=== PATIENT | male | born 1955 | race American Indian/Alaskan Native ===

== ENCOUNTER 2016-11-07 12:51 | Emergency (ER) | payer SELFPAY ==
[2016-11-07 13:30] LABS: Basophils % (Auto) 1.4 % (0.0-1.8); Eosinophils % (Auto) 2.6 % (0.0-4.3); Hematocrit 42.4 % (35.5-45.6); Hemoglobin 14.3 gm/dl (11.8-15.2); Mean Corpuscular HGB Conc 34 % (32-34); Mean Corpuscular Hemoglobin 28 pg (28-32); Mean Corpuscular Volume 84 fl (84-94); Platelet Count 266 K/mm3 (140-440); Red Blood Count 5.02 M/mm3 (3.65-5.03); Red Cell Distribution Width 13.5 % (13.2-15.2); White Blood Count 6.5 K/mm3 (4.5-11.0)
[2016-11-07 13:36] LABS: Anion Gap 20 mmol/L; BUN/Creatinine Ratio 8.88; Blood Urea Nitrogen 8 mg/dL (9-20); Calcium 9.3 mg/dL (8.4-10.2); Carbon Dioxide 25 mmol/L (22-30); Chloride 99.4 mmol/L (98-107); Glucose 198 mg/dL (75-100); Potassium 3.9 mmol/L (3.6-5.0); Sodium 140 mmol/L (137-145)
[2016-11-07] MEDS ORDERED: NACL 0.9% 1000 ML 1,000 ML IV ONE (13:49)
[2016-11-07] MEDS ORDERED: ZOFRAN IV ONE (13:49)
--- NOTE | 2016-11-07 13:56 | Emergency Department Report ---
ED Abdominal Pain HPI - General Chief Complaint: Nausea/Vomiting/Diarrhea Stated Complaint: VOMITTING/STOMACH CRAMPS/NOT EATING Time Seen by Provider: 11/07/16 13:49 Source: patient Mode of arrival: Ambulatory Limitations: No Limitations - History of Present Illness Initial Comments: Patient is a 61-year-old male with history of diabetes presenting to the ER nausea and vomiting. Patient reports for the last week he's had lower abdominal cramping intermittently with associated vomiting. Patient proceeded to vomited twice this week. Vomiting is unrelated to food intake. Otherwise he has been at his normal baseline health. No fevers, chills, headaches, dizziness, chest pain, shortness of breath, falls, syncope, trauma, or sick contacts - Related Data Home Medications Medication Instructions Recorded Confirmed Last Taken Metformin HCl [Glucophage] 850 mg PO BID 11/07/16 11/07/16 11/05/16 glipiZIDE [Glucotrol] 5 mg PO TID 11/07/16 11/07/16 11/05/16 Previous Rx's Medication Instructions Recorded Last Taken Type Ondansetron [Zofran ODT TAB] 8 mg PO Q8HR PRN #12 tab.rapdis 11/07/16 Unknown Rx Allergies Allergy/AdvReac Type Severity Reaction Status Date / Time No Known Allergies Allergy Unverified 11/07/16 12:54 ED Review of Systems ROS: Stated complaint: VOMITTING/STOMACH CRAMPS/NOT EATING Other details as noted in HPI Comment: All other systems reviewed and negative ED Past Medical Hx - Past Medical History Previous Medical History?: Yes Hx Diabetes: Yes Additional medical history: glaucoma, fungus in nails, insomnia, vertigo, diabetic neuropathy - Surgical History Past Surgical History?: No - Social History Smoking Status: Never Smoker Substance Use Type: Prescribed - Medications Home Medications: Home Medications Medication Instructions Recorded Confirmed Last Taken Type Metformin HCl [Glucophage] 850 mg PO BID 11/07/16 11/07/16 11/05/16 History Ondansetron [Zofran ODT TAB] 8 mg PO Q8HR PRN #12 tab.rapdis 11/07/16 Unknown Rx glipiZIDE [Glucotrol] 5 mg PO TID 11/07/16 11/07/16 11/05/16 History ED Physical Exam - General Limitations: No Limitations General appearance: alert, in no apparent distress - Head Head exam: Present: atraumatic, normocephalic - Eye Eye exam: Present: normal appearance, PERRL, EOMI Pupils: Present: normal accommodation - ENT ENT exam: Present: mucous membranes moist - Neck Neck exam: Present: normal inspection - Respiratory Respiratory exam: Present: normal lung sounds bilaterally. Absent: respiratory distress - Cardiovascular Cardiovascular Exam: Present: regular rate, normal rhythm. Absent: systolic murmur, diastolic murmur, rubs, gallop - GI/Abdominal GI/Abdominal exam: Present: soft, normal bowel sounds. Absent: distended, tenderness, guarding, rebound, rigid - Rectal Rectal exam: Present: deferred - exam: Present: normal inspection - Extremities Exam Extremities exam: Present: normal inspection - Back Exam Back exam: Present: normal inspection - Neurological Exam Neurological exam: Present: alert, oriented X3 - Psychiatric Psychiatric exam: Present: normal affect, normal mood - Skin Skin exam: Present: warm, dry, intact, normal color. Absent: rash ED Course Vital Signs 11/07/16 12:56 Temperature 98.3 F Pulse Rate 65 Respiratory 20 Rate Blood Pressure 142/75 O2 Sat by Pulse 100 Oximetry ED Medical Decision Making - Lab Data Result diagrams: 11/07/16 13:10 11/07/16 13:10 Critical care attestation.: If time is entered above; I have spent that time in minutes in the direct care of this critically ill patient, excluding procedure time. ED Disposition Clinical Impression: Abdominal pain, Nausea & vomiting Disposition: DC-01 TO HOME OR SELFCARE Is pt being admited?: No Condition: Stable Instructions: Abdominal Pain (ED), Acute Nausea and Vomiting (ED) Prescriptions: Ondansetron [Zofran ODT TAB] 8 mg PO Q8HR PRN #12 tab.rapdis PRN Reason: Nausea Referrals: PRIMARY CARE,MD [Primary Care Provider] - 3-5 Days
[2016-11-07 14:01] LABS: Bacteria,Urine 1+ /HPF (Negative); Bilirubin,Urine NEG (Negative); Blood,Urine NEG (Negative); Ketones,Urine NEG (Negative); Leukocyte Esterase,Urine NEG (Negative); Mucus,Urine 3+ /HPF; Nitrite,Urine NEG (Negative); Protein,Urine <15 mg/dL mg/dL (Negative); Urobilinogen,Urine < 2.0 mg/dL (<2.0)
[2016-11-07 14:29] LABS: Alanine Aminotransferase 19 units/L (7-56); Alkaline Phosphatase 75 units/L (35-129); Lipase 24 units/L (13-60)
[2016-11-07 14:31] LABS: Bilirubin,Direct < 0.2 mg/dL (0-0.2)
[2016-11-07 16:21] VITALS: BP 132/78
== END 2016-11-07 16:20 | disposition home or self-care (01) ==
LOC: ED 12:51
DX: R10.9 Unspecified abdominal pain (principal); R11.2 Nausea with vomiting, unspecified; E11.9 Type 2 diabetes mellitus without complications
CPT/HCPCS: 36415; 80048; 80074; 81001; 82962; 83690; 85025; 96361; 96374; 99283; J2405; J7030

== ENCOUNTER 2018-06-30 09:18 | Inpatient (IN) | payer MEDICARE ==
[2018-06-30] MEDS ORDERED: NACL 0.9% 1000 ML 1,000 ML IV ONE (09:37)
[2018-06-30] MEDS ORDERED: ZOFRAN IV ONE (09:37)
--- NOTE | 2018-06-30 09:40 | Emergency Department Report ---
ED Abdominal Pain HPI - General Chief Complaint: Nausea/Vomiting/Diarrhea Stated Complaint: DEHYDRATION/CANNOT EAT OR DRINK Time Seen by Provider: 06/30/18 09:34 Source: patient Mode of arrival: Ambulatory Limitations: No Limitations - History of Present Illness Initial Comments: Patient is 62 years old male with a history of diabetes. Patient presented to the ER complaining of diffuse abdominal pain, cramping in nature associated with nausea and vomiting. Patient stated that he is and able to keep anything down for the last 3 days. Last bowel movement was Saturday. Patient stated that he passing gas normally. Patient denied any fever or chills. MD Complaint: abdominal pain -: days(s) Location: diffuse Radiation: none Migration to: no migration Severity scale (0 -10): 0 Quality: cramping Consistency: intermittent - Related Data Home Medications Medication Instructions Recorded Confirmed Last Taken Metformin HCl [Glucophage] 850 mg PO BID 11/07/16 11/07/16 11/05/16 glipiZIDE [Glucotrol] 5 mg PO TID 11/07/16 11/07/16 11/05/16 Previous Rx's Medication Instructions Recorded Last Taken Type Ondansetron [Zofran ODT TAB] 8 mg PO Q8HR PRN #12 tab.rapdis 11/07/16 Unknown Rx Allergies Allergy/AdvReac Type Severity Reaction Status Date / Time No Known Allergies Allergy Unverified 11/07/16 12:54 ED Review of Systems ROS: Stated complaint: DEHYDRATION/CANNOT EAT OR DRINK Other details as noted in HPI Comment: All other systems reviewed and negative Constitutional: denies: chills, fever Cardiovascular: denies: chest pain, palpitations Gastrointestinal: abdominal pain, nausea, vomiting, constipation. denies: diarrhea, hematemesis, melena, hematochezia Musculoskeletal: denies: back pain ED Past Medical Hx - Past Medical History Previous Medical History?: Yes Hx Diabetes: Yes Additional medical history: glaucoma, fungus in nails, insomnia, vertigo, diabetic neuropathy - Surgical History Past Surgical History?: Yes Additional Surgical History: cataracts - Social History Smoking Status: Never Smoker Substance Use Type: None - Medications Home Medications: Home Medications Medication Instructions Recorded Confirmed Last Taken Type Metformin HCl [Glucophage] 850 mg PO BID 11/07/16 11/07/16 11/05/16 History Ondansetron [Zofran ODT TAB] 8 mg PO Q8HR PRN #12 tab.rapdis 11/07/16 Unknown Rx glipiZIDE [Glucotrol] 5 mg PO TID 11/07/16 11/07/16 11/05/16 History ED Physical Exam - General Limitations: No Limitations General appearance: alert, other (actively vomiting) - Head Head exam: Present: atraumatic, normocephalic, normal inspection - Eye Eye exam: Present: normal appearance - ENT ENT exam: Present: mucous membranes dry - Neck Neck exam: Present: normal inspection, full ROM. Absent: tenderness, meningismus, lymphadenopathy, thyromegaly - Respiratory Respiratory exam: Present: normal lung sounds bilaterally. Absent: respiratory distress, wheezes, rales, rhonchi, chest wall tenderness, accessory muscle use, decreased breath sounds, prolonged expiratory - Cardiovascular Cardiovascular Exam: Present: tachycardia - GI/Abdominal GI/Abdominal exam: Present: soft, tenderness, normal bowel sounds. Absent: distended, guarding, rebound, rigid, organomegaly, mass, bruit, pulsatile mass - Extremities Exam Extremities exam: Present: normal inspection, full ROM, normal capillary refill - Back Exam Back exam: Present: normal inspection, full ROM. Absent: tenderness, CVA tenderness (R), CVA tenderness (L), muscle spasm, paraspinal tenderness, vertebral tenderness - Neurological Exam Neurological exam: Present: alert, oriented X3, CN II-XII intact, normal gait, reflexes normal - Psychiatric Psychiatric exam: Present: normal mood - Skin Skin exam: Present: warm, intact, normal color ED Course Vital Signs 06/30/18 09:20 Temperature 98.8 F Pulse Rate 109 H Respiratory 18 Rate Blood Pressure 129/66 O2 Sat by Pulse 100 Oximetry ED Medical Decision Making - Lab Data Result diagrams: 06/30/18 09:42 06/30/18 09:42 - Radiology Data Radiology results: report reviewed Referring Physician: KAREN PAUL Patient Name: EVA CARTER Date of : 1955 Sex: Male Report Date: 2018-06-30 Report Status: Finalized Findings [facility] [address] [place] [address] Cat Scan Report Signed Patient: EVA CARTER MR#: [id number] : 1955 Acct:[id number] Age/Sex: 62 / M ADM Date: 06/30/18 Loc: ED Attending Dr: Ordering Physician: KAREN PAUL Date of Service: 06/30/18 Procedure(s): CT abdomen pelvis wo con Accession Number(s): [id number] cc: KAREN PAUL CT ABDOMEN PELVIS WITHOUT CONTRAST: HISTORY: abdominal pain. COMPARISON: none. TECHNIQUE: Helical CT in 1.25mm intervals without IV contrast. Sagittal and coronal reconstructions. FINDINGS: Lung bases: Normal. Liver: Normal. Biliary system: Normal. Pancreas: Normal. Spleen: Normal. Kidneys/ureters/bladder: Normal. Adrenal glands: Normal. Aorta: Normal. Intestines: Unremarkable given no oral contrast was administered. Appendix: Not confidently identified. Pelvic viscera: Normal. Ascites: None. Adenopathy: There are a few mildly enlarged right iliac lymph nodes measuring up to 2 cm and the right common and external iliac chains. Musculoskeletal: Intact. A small left inguinal hernia containing fat is identified. IMPRESSION: No acute inflammatory process is identified. Borderline to mildly enlarged right iliac lymph nodes of uncertain clinical significance. These may be reactive in nature. A single appendectomy. Small left inguinal hernia containing fat. Transcribed By: TTR Dictated By: PAIGE COPELAND JR, MD Electronically Authenticated By: PAIGE COPELAND JR, MD Signed Date/Time: 06/30/18 1200 DD/ 1156 TD/TT: 06/30/18 1200 - Medical Decision Making Patient is 62 years old male with a history of diabetes. Patient presented to the ER complaining of diffuse abdominal pain, cramping in nature associated with nausea and vomiting. Patient stated that he is and able to keep anything down for the last 3 days. Last bowel movement was Saturday. Patient stated that he passing gas normally. Patient denied any fever or chills. CT abdomen and pelvis is negative for acute finding specifically no bowel obstruction. Patient received normal saline, Zofran and morphine. Patient also received Zosyn. I discussed the patient to Dr. [place] who advised to bridge patient to [facility]. - Differential Diagnosis bowel obstruction, acute pancreatitis, colitis Critical care attestation.: If time is entered above; I have spent that time in minutes in the direct care of this critically ill patient, excluding procedure time. ED Disposition Clinical Impression: Abdominal pain, Leukocytosis, Intractable nausea and vomiting Disposition: DC-09 OP ADMIT IP TO THIS HOSP Is pt being admited?: Yes Condition: Stable
[2018-06-30 09:58] LABS: Hematocrit 27.9 % (35.5-45.6); Hemoglobin 9.3 gm/dl (11.8-15.2); Mean Corpuscular HGB Conc 33 % (32-34); Mean Corpuscular Volume 83 fl (84-94); Platelet Count 364 K/mm3 (140-440); Red Blood Count 3.38 M/mm3 (3.65-5.03); Red Cell Distribution Width 15.1 % (13.2-15.2)
[2018-06-30 10:12] LABS: Alanine Aminotransferase 33 units/L (7-56); Albumin 2.7 g/dL (3.9-5); BUN/Creatinine Ratio 18; Bilirubin,Direct 0.6 mg/dL (0-0.2); Blood Urea Nitrogen 20 mg/dL (9-20); Calcium 8.7 mg/dL (8.4-10.2); Hemolysis Index 13
[2018-06-30] MEDS ORDERED: HumuLIN R IV ONE (10:23)
[2018-06-30 10:33] LABS: Basophils % (Manual) 0 % (0.0-1.8); Eosinophils % (Manual) 0 % (0.0-4.3); Total Cells Counted 100
[2018-06-30 10:35] LABS: Anisocytosis 1+; Platelet Estimate Consistent w Auto; Poikilocytosis 1+; Target Cells 1+
[2018-06-30] MEDS ORDERED: ZOSYN/NS 3.375GM/50ML 3.375 GM/50 ML BAG IV ONE (11:00)
--- NOTE | 2018-06-30 12:03 | Cat Scan Report ---
CT ABDOMEN PELVIS WITHOUT CONTRAST: HISTORY: abdominal pain. COMPARISON: none. TECHNIQUE: Helical CT in 1.25mm intervals without IV contrast. Sagittal and coronal reconstructions. FINDINGS: Lung bases: Normal. Liver: Normal. Biliary system: Normal. Pancreas: Normal. Spleen: Normal. Kidneys/ureters/bladder: Normal. Adrenal glands: Normal. Aorta: Normal. Intestines: Unremarkable given no oral contrast was administered. Appendix: Not confidently identified. Pelvic viscera: Normal. Ascites: None. Adenopathy: There are a few mildly enlarged right iliac lymph nodes measuring up to 2 cm and the right common and external iliac chains. Musculoskeletal: Intact. A small left inguinal hernia containing fat is identified. IMPRESSION: No acute inflammatory process is identified. Borderline to mildly enlarged right iliac lymph nodes of uncertain clinical significance. These may be reactive in nature. A single appendectomy. Small left inguinal hernia containing fat.
[2018-06-30 12:43] LABS: Bilirubin,Urine NEG (Negative); Blood,Urine NEG (Negative); Color,Urine Amber (Yellow); Mucus,Urine 2+ /HPF
--- NOTE | 2018-06-30 16:08 | History and Physical Report ---
History of Present Illness Date of examination: 06/30/18 Date of admission: 06/30/18 12:23 Chief complaint: Vomiting for 2 days History of present illness: 62 years old male with a history of diabetes presented to the ER complaining of diffuse abdominal pain, cramping in nature associated with nausea and vomiting. Poor historian.Unable to tell me how many times he has vomited. Patient stated that he is not able to keep anything down for the last 3 days. Also right foot ulcer on great toe. Past Medical History Previous Medical History?: Yes Hx Diabetes: Yes Glaucoma, Fungus in nails, iabetic neuropathy Foot ulcer Surgical History Past Surgical History?: Yes Additional Surgical History: cataracts Social History Smoking Status: Never Smoker Substance Use Type: None Medications Home Medications: Home Medications Medication Instructions Recorded Confirmed Last Taken Type Metformin HCl [Glucophage] 850 mg PO BID 11/07/16 11/07/16 11/05/16 History Ondansetron [Zofran ODT TAB] 8 mg PO Q8HR PRN #12 tab.rapdis 11/07/16 Unknown Rx glipiZIDE [Glucotrol] 5 mg PO TID 11/07/16 11/07/16 11/05/16 History Review of Systems ROS: Stated complaint: DEHYDRATION/CANNOT EAT OR DRINK Other details as noted in HPI Comment: All other systems reviewed and negative Constitutional: denies: chills, fever Cardiovascular: denies: chest pain, palpitations Gastrointestinal: abdominal pain, nausea, vomiting, constipation. denies: diarrhea, hematemesis, melena, hematochezia Musculoskeletal: denies: back pain Medications and Allergies Allergies Allergy/AdvReac Type Severity Reaction Status Date / Time No Known Allergies Allergy Unverified 11/07/16 12:54 Home Medications Medication Instructions Recorded Confirmed Last Taken Type Metformin HCl [Glucophage] 850 mg PO BID 11/07/16 06/30/18 06/29/18 History glipiZIDE [Glucotrol] 5 mg PO BID 11/07/16 06/30/18 06/29/18 History Exam - Constitutional Vitals: Temp Pulse Resp BP Pulse Ox 100.4 F H 98 H 16 123/62 99 06/30/18 14:44 06/30/18 14:44 06/30/18 14:45 06/30/18 14:44 06/30/18 14:45 General appearance: Present: no acute distress, well-nourished - EENT Eyes: Present: PERRL ENT: hearing intact, clear oral mucosa - Neck Neck: Present: supple, normal ROM - Respiratory Respiratory effort: normal Respiratory: bilateral: CTA - Cardiovascular Heart rate: 78 Rhythm: regular Heart Sounds: Present: S1 & S2. Absent: rub, click - Extremities Extremities: No edema, abnormal (Rt foot ulcer --2cm x 2cm) Extremity abnormal: edema (Both Lower extremities), pulses diminished, other (Stasis dermtitis both legs) Peripheral Pulses: within normal limits - Abdominal General gastrointestinal: Present: soft, non-tender, non-distended, normal bowel sounds Male genitourinary: Present: normal - Integumentary Integumentary: Present: clear, warm, dry - Musculoskeletal Musculoskeletal: gait normal, strength equal bilaterally - Psychiatric Psychiatric: appropriate mood/affect, intact judgment & insight - Neurologic Neurologic: CNII-XII intact, moves all extremities Results - Labs CBC & Chem 7: 06/30/18 09:42 06/30/18 09:42 Labs: Laboratory Last Values WBC 23.5 K/mm3 (4.5-11.0) H 06/30/18 09:42 RBC 3.38 M/mm3 (3.65-5.03) L 06/30/18 09:42 Hgb 9.3 gm/dl (11.8-15.2) L 06/30/18 09:42 Hct 27.9 % (35.5-45.6) L 06/30/18 09:42 MCV 83 fl (84-94) L 06/30/18 09:42 MCH 28 pg (28-32) 06/30/18 09:42 MCHC 33 % (32-34) 06/30/18 09:42 RDW 15.1 % (13.2-15.2) 06/30/18 09:42 Plt Count 364 K/mm3 (140-440) 06/30/18 09:42 Lymph % (Auto) Hr Intern 06/30/18 09:42 Mcdonough % (Auto) Hr Intern 06/30/18 09:42 Eos % (Auto) Hr Intern 06/30/18 09:42 Baso % (Auto) Hr Intern 06/30/18 09:42 Lymph # Hr Intern 02/18/19 09:42 Mcdonough # Hr Intern 06/30/18 09:42 Eos # Hr Intern 06/30/18 09:42 Baso # Hr Intern 06/30/18 09:42 Add Manual Diff Complete 06/30/18 09:42 Total Counted 100 06/30/18 09:42 Seg Neutrophils % Hr Intern 1819 09:42 Seg Neuts % (Manual) 94.0 % (40.0-70.0) H 06/30/18 09:42 Band Neutrophils % 0 % 06/30/18 09:42 Lymphocytes % (Manual) 1.0 % (13.4-35.0) L 06/30/18 09:42 Reactive Lymphs % (Man) 0 % 06/30/18 09:42 Monocytes % (Manual) 5.0 % (0.0-7.3) 06/30/18 09:42 Eosinophils % (Manual) 0 % (0.0-4.3) 06/30/18 09:42 Basophils % (Manual) 0 % (0.0-1.8) 06/30/18 09:42 Metamyelocytes % 0 % 06/30/18 09:42 Myelocytes % 0 % 06/30/18 09:42 Promyelocytes % 0 % 06/30/18 09:42 Blast Cells % 0 % 06/30/18 09:42 Nucleated RBC % Not Reportable 06/30/18 09:42 Seg Neutrophils # Hr Intern 06/30/18 09:42 Seg Neutrophils # Man 22.1 K/mm3 (1.8-7.7) H 18 09:42 Band Neutrophils # 0.0 K/mm3 06/30/18 09:42 Lymphocytes # (Manual) 0.2 K/mm3 (1.2-5.4) L 18 09:42 Abs React Lymphs (Man) 0.0 K/mm3 06/30/18 09:42 Monocytes # (Manual) 1.2 K/mm3 (0.0-0.8) H 06/30/18 09:42 Eosinophils # (Manual) 0.0 K/mm3 (0.0-0.4) 18 09:42 Basophils # (Manual) 0.0 K/mm3 (0.0-0.1) 06/30/18 09:42 Metamyelocytes # 0.0 K/mm3 06/30/18 09:42 Myelocytes # 0.0 K/mm3 06/30/18 09:42 Promyelocytes # 0.0 K/mm3 06/30/18 09:42 Blast Cells # 0.0 K/mm3 06/30/18 09:42 WBC Morphology Not Reportable 06/30/18 09:42 Hypersegmented Neuts Not Reportable 06/30/18 09:42 Hyposegmented Neuts Not Reportable 06/30/18 09:42 Hypogranular Neuts Not Reportable 06/30/18 09:42 Smudge Cells Not Reportable 06/30/18 09:42 Toxic Granulation Not Reportable 06/30/18 09:42 Toxic Vacuolation Not Reportable 06/30/18 09:42 Dohle Bodies Not Reportable 06/30/18 09:42 Pelger-Huet Anomaly Not Reportable 06/30/18 09:42 Marcelo Rods Not Reportable 06/30/18 09:42 Platelet Estimate Consistent w auto 06/30/18 09:42 Clumped Platelets Not Reportable 06/30/18 09:42 Plt Clumps, EDTA Not Reportable 06/30/18 09:42 Large Platelets Not Reportable 06/30/18 09:42 Giant Platelets Not Reportable 06/30/18 09:42 Platelet Satelliting Not Reportable 06/30/18 09:42 Plt Morphology Comment Not Reportable 06/30/18 09:42 RBC Morphology Not Reportable 06/30/18 09:42 Dimorphic RBCs Not Reportable 06/30/18 09:42 Polychromasia Not Reportable 06/30/18 09:42 Hypochromasia Not Reportable 06/30/18 09:42 Poikilocytosis 1+ 06/30/18 09:42 Anisocytosis 1+ 06/30/18 09:42 Microcytosis Not Reportable 06/30/18 09:42 Macrocytosis Not Reportable 06/30/18 09:42 Spherocytes Not Reportable 06/30/18 09:42 Pappenheimer Bodies Not Reportable 06/30/18 09:42 Sickle Cells Not Reportable 06/30/18 09:42 Target Cells 1+ 06/30/18 09:42 Tear Drop Cells Not Reportable 06/30/18 09:42 Ovalocytes Not Reportable 06/30/18 09:42 Helmet Cells Not Reportable 06/30/18 09:42 [place] Bodies Not Reportable 06/30/18 09:42 [place] Rings Not Reportable 06/30/18 09:42 [place] Cells Not Reportable 06/30/18 09:42 Bite Cells Not Reportable 06/30/18 09:42 Crenated Cell Not Reportable 06/30/18 09:42 Elliptocytes Not Reportable 06/30/18 09:42 Acanthocytes (Spur) Not Reportable 06/30/18 09:42 Rouleaux Not Reportable 06/30/18 09:42 Hemoglobin C Crystals Not Reportable 06/30/18 09:42 Schistocytes Not Reportable 06/30/18 09:42 Malaria parasites Not Reportable 06/30/18 09:42 Mumtaz Bodies Not Reportable 06/30/18 09:42 Hem Pathologist Commnt No 06/30/18 09:42 Sodium 132 mmol/L (137-145) L 06/30/18 09:42 Potassium 4.9 mmol/L (3.6-5.0) 06/30/18 09:42 Chloride 92.4 mmol/L (98-107) L 06/30/18 09:42 Carbon Dioxide 22 mmol/L (22-30) 06/30/18 09:42 Anion Gap 23 mmol/L 06/30/18 09:42 BUN 20 mg/dL (9-20) 06/30/18 09:42 Creatinine 1.1 mg/dL (0.8-1.5) 06/30/18 09:42 Estimated GFR > 60 ml/min 06/30/18 09:42 BUN/Creatinine Ratio 18 % 06/30/18 09:42 Glucose 350 mg/dL (75-100) H 06/30/18 09:42 POC Glucose 220 (70-105) H 06/30/18 13:21 Calcium 8.7 mg/dL (8.4-10.2) 06/30/18 09:42 Total Bilirubin 1.30 mg/dL (0.1-1.2) H 06/30/18 09:42 Direct Bilirubin 0.6 mg/dL (0-0.2) H 06/30/18 09:42 Indirect Bilirubin 0.7 mg/dL 06/30/18 09:42 AST 20 units/L (5-40) 06/30/18 09:42 ALT 33 units/L (7-56) 06/30/18 09:42 Alkaline Phosphatase 168 units/L (35-129) H 06/30/18 09:42 Total Protein 7.4 g/dL (6.3-8.2) 06/30/18 09:42 Albumin 2.7 g/dL (3.9-5) L 06/30/18 09:42 Albumin/Globulin Ratio 0.6 % 06/30/18 09:42 Lipase 34 units/L (13-60) 06/30/18 09:42 Urine Color Lucia (Yellow) 06/30/18 Unknown Urine Turbidity Slightly-cloudy (Clear) 06/30/18 Unknown Urine pH 5.0 (5.0-7.0) 06/30/18 Unknown Ur Specific [place] 1.029 (1.003-1.030) 06/30/18 Unknown Urine Protein 100 mg/dl mg/dL (Negative) 06/30/18 Unknown Urine Glucose (UA) >=500 mg/dL (Negative) 06/30/18 Unknown Urine Ketones 20 mg/dL (Negative) 06/30/18 Unknown Urine Blood Neg (Negative) 06/30/18 Unknown Urine Nitrite Neg (Negative) 06/30/18 Unknown Urine Bilirubin Neg (Negative) 06/30/18 Unknown Urine Urobilinogen 4.0 mg/dL (<2.0) 06/30/18 Unknown Ur Leukocyte Esterase Neg (Negative) 06/30/18 Unknown Urine WBC (Auto) 6.0 /HPF (0.0-6.0) 06/30/18 Unknown Urine RBC (Auto) 9.0 /HPF (0.0-6.0) 06/30/18 Unknown U Epithel Cells (Auto) 1.0 /HPF (0-13.0) 06/30/18 Unknown Urine Mucus 2+ /HPF 06/30/18 Unknown Short CBC 06/30/18 Range/Units 09:42 WBC 23.5 H (4.5-11.0) K/mm3 Hgb 9.3 L (11.8-15.2) gm/dl Hct 27.9 L (35.5-45.6) % Plt Count 364 (140-440) K/mm3 BMP 06/30/18 09:42 Sodium 132 L Potassium 4.9 Chloride 92.4 L Carbon Dioxide 22 BUN 20 Creatinine 1.1 Glucose 350 H Calcium 8.7 Liver Function 06/30/18 Range/Units 09:42 Total Bilirubin 1.30 H (0.1-1.2) mg/dL Direct Bilirubin 0.6 H (0-0.2) mg/dL AST 20 (5-40) units/L ALT 33 (7-56) units/L Alkaline Phosphatase 168 H (35-129) units/L Albumin 2.7 L (3.9-5) g/dL Urine 06/30/18 Range/Units Unknown Urine Color Lucia (Yellow) Urine pH 5.0 (5.0-7.0) Ur Specific [place] 1.029 (1.003-1.030) Urine Protein 100 mg/dl (Negative) mg/dL Urine Glucose (UA) >=500 (Negative) mg/dL - Imaging and Cardiology EKG: report reviewed Imaging and Cardiology: Ct ABD IMPRESSION: No acute inflammatory process is identified. Borderline to mildly enlarged right iliac lymph nodes of uncertain clinical significance. These may be reactive in nature. A single appendectomy Assessment and Plan Advance Directives: Yes (FC) VTE prophylaxis?: Chemical Plan of care discussed with patient/family: Yes - Patient Problems (1) Intractable nausea and vomiting Current Visit: Yes Status: Acute Qualifiers: Vomiting type: unspecified Qualified Code(s): R11.2 - Nausea with vomiting, unspecified Plan to address problem: IV Fluids and IV Zofran Possible sec to uncontrolled DM and Metformin Metformin on Hold (2) Non-pressure chronic ulcer of other part of right foot with unspecified severity Current Visit: Yes Status: Chronic Plan to address problem: Work up for Rt foot grt toe wound/ulcer Arterial duplex scan IR/vascular consult (3) T2DM (type 2 diabetes mellitus) Current Visit: Yes Status: Chronic Qualifiers: Diabetes mellitus mcfp insulin use: without keno terminal operator use Plan to address problem: Cont High dose sliding scale coverage Check A1c Vomiting maybe sec to High BG levels (4) Cellulitis of right foot Current Visit: Yes Status: Acute Plan to address problem: IV abx for now (5) Anemia Current Visit: Yes Status: Chronic Qualifiers: Anemia type: unspecified type Qualified Code(s): D64.9 - Anemia, unspecified Plan to address problem: Anemia w/u Check Iron levels (6) DVT prophylaxis Current Visit: Yes Status: Acute Plan to address problem: On Lovenox and GI prophylaxis
[2018-06-30] MEDS: HumaLOG SUB-Q SCH (22:15)
[2018-07-01] MEDS: TYLENOL PO PRN (06:44)
[2018-07-01] MEDS ORDERED: VANCOMYCIN PHARMACY TO DOSE IV SCH (08:00)
[2018-07-01] MEDS ORDERED: VANCOMYCIN 2,000 MG in NACL 0.9% 500 ML 500 ML IV ONE (08:00)
[2018-07-01 08:23] LABS: Hematocrit 27.5 % (35.5-45.6); Mean Corpuscular HGB Conc 33 % (32-34); Mean Corpuscular Volume 82 fl (84-94); Platelet Count 387 K/mm3 (140-440); Red Blood Count 3.35 M/mm3 (3.65-5.03)
[2018-07-01 08:43] LABS: % Iron Saturation 12.7 %
[2018-07-01 08:54] LABS: BUN/Creatinine Ratio 20; Blood Urea Nitrogen 18 mg/dL (9-20); Calcium 8.1 mg/dL (8.4-10.2); Hemolysis Index 0
[2018-07-01] MEDS: GLUCOTROL PO SCH ×2 (09:34→17:56)
[2018-07-01] MEDS: HumaLOG SUB-Q SCH ×4 (09:35→22:27)
[2018-07-01] MEDS: NACL 0.9% 1000 ML 1,000 ML IV SCH (09:36)
[2018-07-01] MEDS: UNASYN/NS 3 GM/100 ML 3 GM/100 ML BAG IV SCH ×2 (11:50→18:26)
--- NOTE | 2018-07-01 12:20 | Progress Note ---
Assessment and Plan / Intractable nausea and vomiting IV Fluids and IV Zofran as needed Possible sec to uncontrolled DM with gastroparesis and Metformin Metformin on Hold / Diabetic right foot with ulcer Work up for Rt foot grt toe wound/ulcer ordered Arterial duplex scan vascular consulted / T2DM (type 2 diabetes mellitus) Cont High dose sliding scale coverage Check A1c, consistent carb diet /Cellulitis of right foot with sepsis IV abx for now / Anemia likley from chronic disease low iron with normal % of saturation and low binding capacity / DVT prophylaxis On Lovenox Brief history: 62 years old male with a history of diabetes presented to the ER complaining of diffuse abdominal pain, cramping in nature associated with nausea and vomiting. Patient stated that he is not able to keep anything down for the last 3 days. He also has a right foot ulcer on great toe. Physical exam: General appearance: Present: no acute distress, well-nourished - EENT Eyes: Present: PERRL ENT: hearing intact, clear oral mucosa - Neck Neck: Present: supple, normal ROM - Respiratory Respiratory effort: normal Respiratory: bilateral: CTA - Cardiovascular Heart rate: 78 Rhythm: regular Heart Sounds: Present: S1 & S2. Absent: rub, click - Extremities Extremities: No edema, abnormal (Rt foot ulcer --2cm x 2cm) Extremity abnormal: edema (Both Lower extremities), pulses diminished, other (Stasis dermtitis both legs) Peripheral Pulses: within normal limits - Abdominal General gastrointestinal: Present: soft, non-tender, non-distended, normal bowel sounds Male genitourinary: Present: normal - Integumentary Integumentary: Present: clear, warm, dry - Musculoskeletal Musculoskeletal: gait normal, strength equal bilaterally - Psychiatric Psychiatric: appropriate mood/affect, intact judgment & insight - Neurologic Neurologic: CNII-XII intact, moves all extremities Subjective Date of service: 07/01/18 Interval history: Pt seen and examined N/V improved denies any pain Objective - Constitutional Vitals: Vital Signs - 12hr 07/01/18 07/01/18 06:00 11:30 Temperature 101.0 F H 99.5 F Pulse Rate 95 H 98 H Respiratory 20 20 Rate Blood Pressure 136/68 122/63 O2 Sat by Pulse 98 100 Oximetry - Labs CBC & Chem 7: 07/02/18 10:21 07/02/18 10:21 Labs: Abnormal lab results 06/30/18 06/30/18 06/30/18 Range/Units 11:05 13:21 15:51 WBC (4.5-11.0) K/mm3 RBC (3.65-5.03) M/mm3 Hgb (11.8-15.2) gm/dl Hct (35.5-45.6) % MCV (84-94) fl MCH (28-32) pg Sodium (137-145) mmol/L Chloride (98-107) mmol/L Glucose (75-100) mg/dL POC Glucose 316 H 220 H 237 H (70-105) Calcium (8.4-10.2) mg/dL Iron (49-181) ug/dL TIBC (250-450) mcg/dL Transferrin (180-329) mg/dl 06/30/18 07/01/18 07/01/18 Range/Units 21:12 07:46 07:46 WBC 22.9 H (4.5-11.0) K/mm3 RBC 3.35 L (3.65-5.03) M/mm3 Hgb 9.0 L (11.8-15.2) gm/dl Hct 27.5 L (35.5-45.6) % MCV 82 L (84-94) fl MCH 27 L (28-32) pg Sodium (137-145) mmol/L Chloride (98-107) mmol/L Glucose (75-100) mg/dL POC Glucose 246 H (70-105) Calcium (8.4-10.2) mg/dL Iron 16 L (49-181) ug/dL TIBC 126 L (250-450) mcg/dL Transferrin 98 L (180-329) mg/dl 07/01/18 Range/Units 07:46 WBC (4.5-11.0) K/mm3 RBC (3.65-5.03) M/mm3 Hgb (11.8-15.2) gm/dl Hct (35.5-45.6) % MCV (84-94) fl MCH (28-32) pg Sodium 135 L (137-145) mmol/L Chloride 94.8 L (98-107) mmol/L Glucose 216 H (75-100) mg/dL POC Glucose (70-105) Calcium 8.1 L (8.4-10.2) mg/dL Iron (49-181) ug/dL TIBC (250-450) mcg/dL Transferrin (180-329) mg/dl
--- NOTE | 2018-07-01 13:23 | Consultation ---
History of Present Illness - Reason for Consult Consult date: 07/01/18 Bilateral lower extremity Ulceration Requesting physician: RYAN CASTRO - History of Present Illness This pt is a 62yo AAM admitted via the [facility] ER due to abd pain. Pt was also noted to have wounds to both feet, and therefore a vascular surgery consult was requested to further evaluate. The Pt states that the wounds to the right great toe started about 2 weeks. He reports his 1st toe nail 'came off' with his sock. His wounds have since deteriorated since that time. Past History Past Medical History: diabetes, other (glacoma) Past Surgical History: appendectomy, Other (cataracts) Social history: denies: smoking (denies h/o tob use) Family history: no significant family history Medications and Allergies Allergies Allergy/AdvReac Type Severity Reaction Status Date / Time No Known Allergies Allergy Unverified 11/07/16 12:54 Home Medications Medication Instructions Recorded Confirmed Last Taken Type Metformin HCl [Glucophage] 850 mg PO BID 11/07/16 06/30/18 06/29/18 History glipiZIDE [Glucotrol] 5 mg PO BID 11/07/16 06/30/18 06/29/18 History Active Meds: Active Medications Acetaminophen (Tylenol) 650 mg PO Q4H PRN PRN Reason: Pain, Mild (1-3) Last Admin: 07/01/18 06:44 Dose: 650 mg Documented by: Enoxaparin Sodium (Lovenox) 40 mg SUB-Q QDAY@2200 TAJ Glipizide (Glucotrol) 5 mg PO BIDDIAB TAJ Last Admin: 07/01/18 09:34 Dose: 5 mg Documented by: Ampicillin Sodium/Sulbactam Sodium (Unasyn/Ns 3 Gm/100 Ml) 3 gm in 100 mls @ 100 mls/hr IV Q6HR TAJ; Protocol Last Admin: 07/01/18 11:50 Dose: 100 mls/hr Documented by: Sodium Chloride (Nacl 0.9% 1000 Ml) 1,000 mls @ 75 mls/hr IV DIRECT TAJ Last Admin: 07/01/18 09:36 Dose: 75 mls/hr Documented by: Vancomycin HCl 1,500 mg/ (Sodium Chloride) 530 mls @ 333.333 mls/hr IV Q12HR TAJ Insulin [facility]) [facility]ulin Human Lispro (Humalog) 0 unit SUB-Q ACH[facility]; Protocol Last Admin: 07/01/18 12:51 Dose: 4 unit Documented by: Review of Systems All systems: negative Exam - Constitutional Vitals: Temp Pulse Resp BP Pulse Ox 99.5 F 98 H 20 122/63 100 07/01/18 11:30 07/01/18 11:30 07/01/18 11:30 07/01/18 11:30 07/01/18 11:30 General appearance: Present: no acute distress - EENT Eyes: Present: EOM intact ENT: hearing intact - Neck Neck: Present: supple - Respiratory Respiratory effort: normal - Extremities Extremities: normal temperature, abnormal (easily palpable DP on the left, but unable to palpate on the right, this maybe due to mod swelling and thickened tissue on the right. His 1st toes are wrapped by ET nurse, and images were reviewed. He has what appears to be blackened necrotic tissue of the right 1st toe and a fissue wound to the base of the left 1st toe. No overt erythema or drainage was appreciated.) - Psychiatric Psychiatric: appropriate mood/affect, intact judgment & insight, cooperative - Neurologic Neurologic: other (decreased sensation to both feet.) Results - Labs CBC & Chem 7: 07/01/18 07:46 07/01/18 07:46 Labs: Abnormal lab results 06/30/18 06/30/18 06/30/18 Range/Units 11:05 13:21 15:51 WBC (4.5-11.0) K/mm3 RBC (3.65-5.03) M/mm3 Hgb (11.8-15.2) gm/dl Hct (35.5-45.6) % MCV (84-94) fl MCH (28-32) pg Sodium (137-145) mmol/L Chloride (98-107) mmol/L Glucose (75-100) mg/dL POC Glucose 316 H 220 H 237 H (70-105) Calcium (8.4-10.2) mg/dL Iron (49-181) ug/dL TIBC (250-450) mcg/dL Transferrin (180-329) mg/dl 06/30/18 07/01/18 07/01/18 Range/Units 21:12 07:46 07:46 WBC 22.9 H (4.5-11.0) K/mm3 RBC 3.35 L (3.65-5.03) M/mm3 Hgb 9.0 L (11.8-15.2) gm/dl Hct 27.5 L (35.5-45.6) % MCV 82 L (84-94) fl MCH 27 L (28-32) pg Sodium (137-145) mmol/L Chloride (98-107) mmol/L Glucose (75-100) mg/dL POC Glucose 246 H (70-105) Calcium (8.4-10.2) mg/dL Iron 16 L (49-181) ug/dL TIBC 126 L (250-450) mcg/dL Transferrin 98 L (180-329) mg/dl 07/01/18 07/01/18 07/01/18 Range/Units 07:46 08:49 11:46 WBC (4.5-11.0) K/mm3 RBC (3.65-5.03) M/mm3 Hgb (11.8-15.2) gm/dl Hct (35.5-45.6) % MCV (84-94) fl MCH (28-32) pg Sodium 135 L (137-145) mmol/L Chloride 94.8 L (98-107) mmol/L Glucose 216 H (75-100) mg/dL POC Glucose 230 H 242 H (70-105) Calcium 8.1 L (8.4-10.2) mg/dL Iron (49-181) ug/dL TIBC (250-450) mcg/dL Transferrin (180-329) mg/dl Assessment and Plan Pt has a progressively necrotic wound to his right foot over the last 2 weeks. Non-invasive arterial duplex with DEEPAK have been ordered. Further recommendations based upon these findings. Continue ABX, offloading pressure, medical and nutritional optimization, and good local wound care to improve his chances of distal wound healing. - Patient Problems (1) Non-pressure chronic ulcer of other part of right foot with unspecified severity Current Visit: Yes Status: Chronic (2) Leukocytosis Current Visit: Yes Status: Acute (3) T2DM (type 2 diabetes mellitus) Current Visit: Yes Status: Chronic Qualifiers: Diabetes mellitus residential insulin use: without residential use (4) Abdominal pain Current Visit: Yes Status: Acute
--- NOTE | 2018-07-01 16:34 | Vascular Lab Report ---
FINAL REPORT EXAM: VL ARTERIAL DUPLEX LE BILAT HISTORY: Foot ulcer TECHNIQUE: Moreno scale, color and pulsed Doppler ultrasound with color flow and spectral analysis leopoldo luation of both lower extremities arteries were performed. PRIORS: None currently available. FINDINGS: RIGHT EXTREMITY: DEEPAK: 0.96. TBI: 0.94. Distal iliac, SAND MOLDER, proximal SFA, DFA, mid SFA, distal SFA, popliteal, CROSSWORD PUZZLE MAKER and MIRA velocities in cm/se c: 143, 100, 85, 110, 110, 103, 106, 72, and 118. Monophasic flow at the MIRA and CROSSWORD PUZZLE MAKER. Otherwise triph asic and biphasic flow elsewhere. Homogeneous hypoechoic structure in the right groin measures 2.5 x 1.5 cm without echogenic center. LEFT EXTREMITY: DEEPAK: 1.13. TBI: 1.08. Distal iliac, SAND MOLDER, proximal SFA, DFA, mid SFA, distal SFA, popliteal, CROSSWORD PUZZLE MAKER and MIRA velocities in cm/se c: 117, 89, 85, 74, 111, 79, 105, 50, and 72. Triphasic flow throughout. Prominent left groin lymph node with echogenic center measures 1.9 x 0.6 cm. IMPRESSION: Prominent right groin lesion. Atypical or reactive lymph node versus lesion. Prominent left groin lymph node. Moderate to severe disease at the right CROSSWORD PUZZLE MAKER and MIRA. Monophasic flow without significant velocity rach vation or drop. No evidence for hemodynamically significant stenosis in the left lower extremity.
[2018-07-01] MEDS: LANTUS SUB-Q SCH (22:28)
[2018-07-01] MEDS: LOVENOX SUB-Q SCH (22:29)
[2018-07-01] MEDS: VANCOMYCIN 1,500 MG in NACL 0.9% 500 ML 500 ML IV SCH (22:29)
[2018-07-02] MEDS: UNASYN/NS 3 GM/100 ML 3 GM/100 ML BAG IV SCH ×4 (00:49→17:49)
[2018-07-02] MEDS: TYLENOL PO PRN ×3 (00:49→18:36)
[2018-07-02] MEDS: GLUCOTROL PO SCH ×2 (07:43→17:49)
[2018-07-02] MEDS: NACL 0.9% 1000 ML 1,000 ML IV SCH (07:43)
[2018-07-02] MEDS: HumaLOG SUB-Q SCH ×4 (08:02→22:23)
[2018-07-02] MEDS: VANCOMYCIN 1,500 MG in NACL 0.9% 500 ML 500 ML IV SCH ×2 (09:57→22:23)
[2018-07-02 11:10] LABS: Hematocrit 27.2 % (35.5-45.6); Hemoglobin 8.9 gm/dl (11.8-15.2); Mean Corpuscular HGB Conc 33 % (32-34); Mean Corpuscular Volume 83 fl (84-94); Platelet Count 360 K/mm3 (140-440); Red Cell Distribution Width 15.3 % (13.2-15.2)
[2018-07-02 11:24] LABS: BUN/Creatinine Ratio 16; Blood Urea Nitrogen 11 mg/dL (9-20); Calcium 7.9 mg/dL (8.4-10.2); Hemolysis Index 41
--- NOTE | 2018-07-02 13:50 | Progress Note ---
Assessment and Plan / Diabetic right foot with ulcer Work up for Rt foot grt toe wound/ulcer ordered Arterial duplex scan , vascular consulted Pt's arterial duplex showed monophasic flow to his right foot. In light of several week h/o non-healing wounds, VS recommend arteriogram with possible revascularization - planned for tomorrow / Intractable nausea and vomiting, now resolved IV Fluids and IV Zofran as needed Possible sec to uncontrolled DM with gastroparesis and Metformin Metformin on Hold / T2DM (type 2 diabetes mellitus) Cont High dose sliding scale coverage Check A1c, consistent carb diet /Cellulitis of right foot with sepsis IV abx for now / Anemia likley from chronic disease low iron with normal % of saturation and low binding capacity / DVT prophylaxis On Lovenox Brief history: 62 years old male with a history of diabetes presented to the ER complaining of diffuse abdominal pain, cramping in nature associated with nausea and vomiting. Patient stated that he is not able to keep anything down for the last 3 days. He also has a right foot ulcer on great toe. Physical exam: General appearance: Present: no acute distress, well-nourished - EENT Eyes: Present: PERRL ENT: hearing intact, clear oral mucosa - Neck Neck: Present: supple, normal ROM - Respiratory Respiratory effort: normal Respiratory: bilateral: CTA - Cardiovascular Heart rate: 78 Rhythm: regular Heart Sounds: Present: S1 & S2. Absent: rub, click - Extremities Extremities: No edema, abnormal (Rt foot ulcer --2cm x 2cm) Extremity abnormal: edema (Both Lower extremities), pulses diminished, other (Stasis dermtitis both legs) Peripheral Pulses: within normal limits - Abdominal General gastrointestinal: Present: soft, non-tender, non-distended, normal bowel sounds Male genitourinary: Present: normal - Integumentary Integumentary: Present: clear, warm, dry - Musculoskeletal Musculoskeletal: gait normal, strength equal bilaterally - Psychiatric Psychiatric: appropriate mood/affect, intact judgment & insight - Neurologic Neurologic: CNII-XII intact, moves all extremities Subjective Date of service: 07/02/18 Interval history: Pt seen and examined N/V improved denies any pain Objective - Constitutional Vitals: Vital Signs - 12hr 07/02/18 05:58 Temperature 100.1 F H Pulse Rate 76 Respiratory 20 Rate Blood Pressure 110/55 O2 Sat by Pulse 100 Oximetry - Labs CBC & Chem 7: 07/02/18 10:21 07/02/18 10:21 Labs: Abnormal lab results 07/01/18 07/01/18 07/02/18 Range/Units 16:33 21:51 07:56 WBC (4.5-11.0) K/mm3 RBC (3.65-5.03) M/mm3 Hgb (11.8-15.2) gm/dl Hct (35.5-45.6) % MCV (84-94) fl MCH (28-32) pg RDW (13.2-15.2) % Sodium (137-145) mmol/L Creatinine (0.8-1.5) mg/dL Glucose (75-100) mg/dL POC Glucose 206 H 204 H 145 H (70-105) Calcium (8.4-10.2) mg/dL 07/02/18 07/02/18 Range/Units 10:21 10:21 WBC 20.0 H (4.5-11.0) K/mm3 RBC 3.30 L (3.65-5.03) M/mm3 Hgb 8.9 L (11.8-15.2) gm/dl Hct 27.2 L (35.5-45.6) % MCV 83 L (84-94) fl MCH 27 L (28-32) pg RDW 15.3 H (13.2-15.2) % Sodium 136 L (137-145) mmol/L Creatinine 0.7 L (0.8-1.5) mg/dL Glucose 155 H (75-100) mg/dL POC Glucose (70-105) Calcium 7.9 L (8.4-10.2) mg/dL
--- NOTE | 2018-07-02 14:55 | Progress Note ---
Assessment and Plan Pt's arterial duplex shows monophasic flow to his right foot. In light of several week h/o non-healing wounds, recommend arteriogram with possible revascularization. The R,B,and Alternatives discussed in detail. Pt states understanding and agrees to proceed. We also discussed the need to offload pressure, optimize medical and nutritional needs. Pt is currently followed by ET nurse, but recommend Consultation with the wound care surgeon. Pt's toe may not be salvageable, and suspect he will need ongoing wound care following discharge. He may need further imaging (x-ray/MRI , to further evaluate for osteomylitis). Will defer to wound care surgeon, and medical services. Will schedule arteriogram for tomorrow in the garden labourer utilizing fluoroscopic and ultrasound guidance. 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 Feeling 'some better' since admission. Objective - Constitutional Vitals: Vital Signs - 12hr 07/02/18 05:58 Temperature 100.1 F H Pulse Rate 76 Respiratory 20 Rate Blood Pressure 110/55 O2 Sat by Pulse 100 Oximetry General appearance: Present: no acute distress - EENT Eyes: EOM intact ENT: hearing intact - Neck Neck: supple - Respiratory Respiratory effort: normal Extremities: normal temperature Extremity abnormal: ulceration (Right and left 1st toes bandaged, foul odor noted from right foot.) - Neurologic Neurologic: no focal deficits - Psychiatric Psychiatric: appropriate mood/affect, intact judgment & insight, cooperative - Labs CBC & Chem 7: 07/02/18 10:21 07/02/18 10:21 Labs: Abnormal lab results 07/01/18 07/01/18 07/02/18 Range/Units 16:33 21:51 07:56 WBC (4.5-11.0) K/mm3 RBC (3.65-5.03) M/mm3 Hgb (11.8-15.2) gm/dl Hct (35.5-45.6) % MCV (84-94) fl MCH (28-32) pg RDW (13.2-15.2) % Sodium (137-145) mmol/L Creatinine (0.8-1.5) mg/dL Glucose (75-100) mg/dL POC Glucose 206 H 204 H 145 H (70-105) Calcium (8.4-10.2) mg/dL 07/02/18 07/02/18 Range/Units 10:21 10:21 WBC 20.0 H (4.5-11.0) K/mm3 RBC 3.30 L (3.65-5.03) M/mm3 Hgb 8.9 L (11.8-15.2) gm/dl Hct 27.2 L (35.5-45.6) % MCV 83 L (84-94) fl MCH 27 L (28-32) pg RDW 15.3 H (13.2-15.2) % Sodium 136 L (137-145) mmol/L Creatinine 0.7 L (0.8-1.5) mg/dL Glucose 155 H (75-100) mg/dL POC Glucose (70-105) Calcium 7.9 L (8.4-10.2) mg/dL Medications & Allergies - Medications Allergies/Adverse Reactions: Allergies No Known Allergies Allergy (Unverified 11/07/16 12:54) Home Medications: Home Medications Medication Instructions Recorded Confirmed Last Taken Type Metformin HCl [Glucophage] 850 mg PO BID 11/07/16 06/30/18 06/29/18 History glipiZIDE [Glucotrol] 5 mg PO BID 11/07/16 06/30/18 06/29/18 History Active Medications: Generic Name Dose Route Start Last Admin Trade Name Freq PRN Reason Stop Dose Admin Acetaminophen 650 mg 07/01/18 06:34 07/02/18 06:19 Tylenol PO 650 mg Q4H PRN Administration Pain, Mild (1-3) Enoxaparin Sodium 40 mg 07/01/18 22:00 07/01/18 22:29 Lovenox SUB-Q 40 mg QDAY@2200 TAJ Administration Glipizide 5 mg 07/01/18 08:00 07/02/18 07:43 Glucotrol PO 5 mg BIDDIAB TAJ Administration Ampicillin Sodium/Sulbactam Sodium 3 gm in 100 mls @ 100 mls/hr 07/01/18 10:00 07/02/18 12:32 Unasyn/Ns 3 Gm/100 Ml IV 100 mls/hr Q6HR TAJ Administration Protocol Sodium Chloride 1,000 mls @ 75 mls/hr 07/01/18 08:00 07/02/18 07:43 Nacl 0.9% 1000 Ml IV 75 mls/hr DIRECT TAJ Administration Vancomycin HCl 1,500 mg/ 530 mls @ 333.333 mls/hr 07/01/18 22:00 07/02/18 09:57 Sodium Chloride IV 333.333 mls/hr Q12HR TAJ Administration Insulin Glargine 25 units 07/01/18 22:00 07/01/18 22:28 Lantus SUB-Q 25 units QHS TAJ Administration Insulin Human Lispro 0 unit 06/30/18 22:00 07/02/18 13:02 Humalog SUB-Q Not Given ACHS TAJ Protocol
[2018-07-02] MEDS: MUCINEX ER PO SCH (22:22)
[2018-07-02] MEDS: LOVENOX SUB-Q SCH (22:22)
[2018-07-02] MEDS: LANTUS SUB-Q SCH (22:24)
[2018-07-02] MEDS: DAKIN'S HALF STRENGTH TP SCH (23:30)
[2018-07-02] MEDS: ZOSYN/NS 3.375GM/50ML 3.375 GM/50 ML BAG IV SCH (23:35)
[2018-07-03] MEDS: TYLENOL PO PRN (00:59)
[2018-07-03] MEDS: NACL 0.9% 1000 ML 1,000 ML IV SCH (02:57)
[2018-07-03] MEDS: ZOSYN/NS 3.375GM/50ML 3.375 GM/50 ML BAG IV SCH (06:03)
[2018-07-03] MEDS ORDERED: NACL 0.9% 500 ML 500 ML ONE ×2 (08:11→08:19)
[2018-07-03] MEDS ORDERED: ANCEF/STERILE WATER 2 GM/20 ML 0 GM/0 ML SYRINGE IV ONE (08:18)
[2018-07-03] MEDS ORDERED: XYLOCAINE 2% INFILTRATI ONE (08:18)
[2018-07-03] MEDS ORDERED: HEPARIN 10,000 UNITS/10 ML ONE (08:18)
[2018-07-03] MEDS ORDERED: HEPARIN/NS 5000 UNIT/500ML(CATH LAB) 1,500 ML IR ONE (08:18)
[2018-07-03] MEDS ORDERED: SUBLIMAZE ONE ×2 (08:19→09:15)
[2018-07-03] MEDS ORDERED: NACL 0.9% 500 ML 500 ML IV SCH (09:00)
[2018-07-03] MEDS: VERSED ONE ×2 (09:06→09:09)
[2018-07-03] MEDS ORDERED: VERSED ONE (09:15)
[2018-07-03] MEDS ORDERED: CALAN ONE (09:30)
[2018-07-03] MEDS ORDERED: TRIDIL DRIP 50MG/250ML 50 MG/250 ML BOTTLE ONE (09:30)
[2018-07-03] MEDS ORDERED: NACL 0.9% 1000 ML 1,000 ML ONE (09:38)
[2018-07-03] MEDS ORDERED: ALUM-MAG HYDROX-SIMETH 200-200-20MG/5ML ONE (10:09)
[2018-07-03] MEDS ORDERED: PLAVIX ONE (10:09)
--- NOTE | 2018-07-03 10:35 | Operative Report ---
Operative Report Operative Report: EXAM: 1. Ultrasound-guided access of the left common femoral artery. 2. Angiography of the left lower extremity. 3. Selection of the abdominal aorta with angiography. 4. Selection of the right external iliac artery, right superficial femoral artery, popliteal artery, and right anterior tibial artery with angiography. 5. Atherectomy of the right distal anterior tibial artery with a 1.25 CSI solid atherectomy device with 3 mm x 100 mm angioplasty. 6. Closure of the left common femoral artery with 6 Afghan Pro-glide DATE: 07/03/18 HYDRATOR OPERATOR: DONAVON MEJIA MD INDICATION: Critical limb ischemia of the right lower extremity with infection MEDICATIONS: Please see nursing report for full details. DEVICES: 1.25 solid CSI atherectomy device 3 mm x 100 mm angioplasty balloon CONTRAST: 40 mL of nonionic contrast PROCEDURE: The risks, benefits, and alternatives were discussed with the patient; written informed consent was obtained. The left common femoral artery was evaluated with ultrasound was patent. Under direct ultrasound guidance, the left common femoral artery was accessed with a 21-gauge Manuel puncture needle. 0.018 inch wire was passed into the aorta. Needle was exchanged for transitional dilator. Y was exchanged for 0.035 inch wire. Transitional dilator was exchanged for 5 Afghan sheath. Digital subtraction angiography was performed of ensuring patency of the left external iliac artery, left common femoral artery, left proximal superficial femoral artery, and the left profunda femoral artery. The puncture was appropriate, above the bifurcation and below the inferior epigastric artery. Flush catheter was advanced over the wire niece disliked the abdominal aorta. Digital subtraction angiography was performed. Catheter was used to select the right external iliac artery and digital subtraction angiography was performed. Catheter was used to select the right superficial femoral artery and popliteal artery and digital subtraction angiography was performed. Digital subtraction angiography demonstrated patency of the infrarenal abdominal aorta, bilateral common iliac arteries, bilateral internal iliac arteries, bilateral external iliac arteries, bilateral common femoral arteries, right profunda femoral artery, right superficial femoral artery, right popliteal artery, right tibioperoneal trunk and peroneal artery. The posterior tibial artery became atretic towards the ankle and was less than half a millimeter in the foot with a short segment occlusion from the ankle to the heel. This was not reconstructable. The anterior tibial artery demonstrated some narrowing in the midportion, but this turned out to be spasm. There was 50% narrowing at the distal anterior tibial near the ankle. The rest of the anterior tibial artery was patent and the dorsalis pedis had flow into the pedal arch and the plantar arteries through retrograde flow. Patient was heparinized. Sheath was exchanged for 6 Afghan 90 cm [place] destination position in the right popliteal artery. The anterior tibial artery was selected and a wire was passed into the dorsalis pedis. CSI atherectomy was performed of the right distal anterior tibial artery and this was followed with a 3 mm x 100 mm angioplasty at low pressure for 3 minutes. Intermittent nitroglycerin was injected. Digital subtraction angiography was performed demonstrating patency of the entirety of the anterior tibial artery. At this point, all wires, catheters, and sheaths were retracted to the left external iliac artery and the site was then closed with a 6 Afghan Pro-glide. Immediate hemostasis was achieved. Pressure dressing applied. Sterile dressing applied. Patient was loaded with Plavix. FINDINGS: Please see procedure note above IMPRESSION: 1. Successful atherectomy and angioplasty of the right anterior tibial artery.
[2018-07-03] MEDS: VANCOMYCIN 1,500 MG in NACL 0.9% 500 ML 500 ML IV SCH ×2 (11:33→22:22)
[2018-07-03] MEDS: HumaLOG SUB-Q SCH ×4 (11:37→22:19)
[2018-07-03] MEDS: GLUCOTROL PO SCH ×2 (11:37→17:58)
[2018-07-03] MEDS: MUCINEX ER PO SCH ×2 (11:37→22:14)
[2018-07-03] MEDS: DAKIN'S HALF STRENGTH TP SCH ×2 (11:38→22:20)
--- NOTE | 2018-07-03 12:31 | Consultation ---
History of Present Illness Consult date: 07/03/18 Chief complaint: Diabetic right foot infection - History of present illness History of present illness: 62 yo male with a diabetic right foot infection. He is s/p revascularization of his RLE this morning. Dr. Street asked that I evaluate the pt for consideration of right great toe amputation. However, after his arteriogram, Dr. Street called me to inform me that the pt also has gas within the deep tissue of his right foot. Past History Past Medical History: diabetes, other (glacoma) Past Surgical History: appendectomy, Other (cataracts) Social history: denies: smoking (denies h/o tob use) Family history: no significant family history Medications and Allergies Allergies Allergy/AdvReac Type Severity Reaction Status Date / Time No Known Allergies Allergy Unverified 11/07/16 12:54 Home Medications Medication Instructions Recorded Confirmed Last Taken Type Metformin HCl [Glucophage] 850 mg PO BID 11/07/16 06/30/18 06/29/18 History glipiZIDE [Glucotrol] 5 mg PO BID 11/07/16 06/30/18 06/29/18 History Active Meds: Active Medications Acetaminophen (Tylenol) 650 mg PO Q4H PRN PRN Reason: Pain, Mild (1-3) Last Admin: 07/03/18 00:59 Dose: 650 mg Documented by: Clopidogrel Bisulfate (Plavix) 75 mg PO QDAY [facility] Enoxaparin Sodium (Lovenox) 40 mg SUB-Q QDAY@2200 [facility] Last Admin: 07/02/18 22:22 Dose: 40 mg Documented by: Glipizide (Glucotrol) 5 mg PO BIDDIAB [facility] Last Admin: 07/03/18 11:37 Dose: 5 mg Documented by: Guaifenesin (Mucinex Er) 600 mg PO BID [facility] Last Admin: 07/03/18 11:37 Dose: 600 mg Documented by: Sodium Chloride (Nacl 0.9% 1000 Ml) 1,000 mls @ 75 mls/hr IV DIRECT [facility] Last Admin: 07/03/18 02:57 Dose: 75 mls/hr Documented by: Vancomycin HCl 1,500 mg/ (Sodium Chloride) 530 mls @ 333.333 mls/hr IV Q12HR [facility] Last Admin: 07/03/18 11:33 Dose: 333.333 mls/hr Documented by: Sodium Chloride (Nacl 0.9% 500 Ml) 500 mls @ 50 mls/hr IV DIRECT TAJ Stop: 07/04/18 08:59 Piperacillin Sod/Tazobactam Sod (Zosyn/Ns 4.5gm/100ml) 4.5 gm in 100 mls @ 200 mls/hr IV Q8HR [facility] Insulin Glargine (Lantus) 25 units SUB-Q QHS [facility]J Last Admin: 07/02/18 22:24 Dose: Not Given Documented by: Insulin Human Lispro (Humalog) 0 unit SUB-Q ACHS TAJ; Protocol Last Admin: 07/03/18 11:37 Dose: Not Given Documented by: Sodium Hypochlorite (Dakin's Half Strength) 1 applic TP BID [facility] Last Admin: 07/03/18 11:38 Dose: 1 applic Documented by: Review of Systems All systems: negative (none) Exam Vital Signs Temp Pulse Resp BP Pulse Ox 98.8 F 109 H 18 129/66 100 06/30/18 09:20 06/30/18 09:20 06/30/18 09:20 06/30/18 09:20 06/30/18 09:20 - General physical appearance Positive: well developed, well nourished, no distress - Eyes Positive: PERRL, normal occular movement - ENT Positive: normal pinna, normal nares, normal mucosa, no hearing loss, no congestion - Neck Positive: no masses, no bruits, trachea midline, no venous distension - Respiratory Positive: normal expansion, normal respiratory effort, clear to auscultation - Cardiovascular Rhythm: regular (FROM and 5/5 motor strength X 4) Heart Sounds: Present: S1 & S2. Absent: rub, click - Breasts Breasts: deferred - Abdomen Abdomen: Present: soft, bowel sounds normal. Absent: tender, distended Hernia: none - Genitourinary Male Genitourinary: deferred - Integumentary other (The right great toe is abscessed and necrotic. There is purulence draining from the dorsal and plantar mid-foot. There is a large amount of necr otic skin over the plantar right foot.) - Neurologic Neurologic: alert and oriented to time, place and person, motor strength and sensation are grossly intact - Psychiatric Psychiatric: appropriate mood/affect, intact judgment & insight Results - Labs 07/02/18 10:21 07/02/18 10:21 Abnormal lab results 07/02/18 07/02/18 07/02/18 Range/Units 11:42 18:25 22:17 POC Glucose 146 H 180 H 120 H (70-105) 07/03/18 07/03/18 Range/Units 08:10 11:47 POC Glucose 162 H 177 H (70-105) Assessment and Plan - Patient Problems (1) Abscess of tendon of right foot Current Visit: Yes Status: Acute Plan to address problem: 1) I&D is indicated and will be performed today. 2) Continue Zosyn and Vancocin 3) Strict DM control 4) Right foot is likely not salvageable.
--- NOTE | 2018-07-03 12:49 | Procedure Note ---
Date of procedure: 07/03/18 Pre-op diagnosis: Right foot abscess with tendon involvement Post-op diagnosis: same Procedure: Deep I&D of deep right foot abscess Description of procedure: Pt was placed supine on his bed. The right foot was prepped and draped. Necrotic calloused skin of the great toe and foot was excised with scissors with drainage of a large amount of purulent fluid. This revealed a necrotic draining area along the medial aspect of his mid-distal foot. Wide I&D of this abscess was performed and the abscess cavity probed with my left index finger so as to break up any loculations. Additional necrotic skin, SQ and fascia was surgically, excisionally removed. There was no bleeding or pain. The pt's plantar foot was ischemic and non-viable up to the distal plantar heel. The pt tolerated the procedure well. His wounds were dressed with Dakin's moistened gauze. This was performed by his nurse. I informed the pt that his foot was not viable and that a BKA was indicated. He is not ready to proceed with this as he has to take care of his who has had a stroke. I informed him that the infection could spread proximally necessitating an AKA and even be life threatening. He desires that we go to the OR tomorrow for debridement of all necrotic tissue but without a major amputation (BKA). He is aware that I plan on amputating his right great toe and that a major portion of his right foot will be gone after the debridement. I will make him NPO after MN. His surgery will be performed around 4-5 pm. Anesthesia: none Surgeon: LILY FENTON Estimated blood loss: minimal Pathology: none Condition: stable Disposition: no change
[2018-07-03] MEDS: ZOSYN/NS 4.5GM/100ML 4.5 GM/100 ML VIAL IV SCH ×2 (13:01→22:12)
--- NOTE | 2018-07-03 13:57 | Progress Note ---
Assessment and Plan / Diabetic right foot with ulcer Pt's arterial duplex showed monophasic flow to his right foot. In light of several week h/o non-healing wounds, VS recommend arteriogram with possible revascularization - which has done today Consulted GS dr Dobson for possible amputation and I/D of right foot - planned for tomorrow / Intractable nausea and vomiting, now resolved IV Fluids and IV Zofran as needed Possible sec to uncontrolled DM with gastroparesis and Metformin Metformin on Hold / T2DM (type 2 diabetes mellitus) Cont High dose sliding scale coverage Check A1c, consistent carb diet /Cellulitis of right foot with sepsis IV abx for now / Anemia likley from chronic disease low iron with normal % of saturation and low binding capacity / DVT prophylaxis On Lovenox Brief history: 62 years old male with a history of diabetes presented to the ER complaining of diffuse abdominal pain, cramping in nature associated with nausea and vomiting. Patient stated that he is not able to keep anything down for the last 3 days. He also has a right foot ulcer on great toe. Physical exam: General appearance: Present: no acute distress, well-nourished - EENT Eyes: Present: PERRL ENT: hearing intact, clear oral mucosa - Neck Neck: Present: supple, normal ROM - Respiratory Respiratory effort: normal Respiratory: bilateral: CTA - Cardiovascular Heart rate: 78 Rhythm: regular Heart Sounds: Present: S1 & S2. Absent: rub, click - Extremities Extremities: No edema, abnormal both foot - covered with wound dressing Extremity abnormal: edema (Both Lower extremities), pulses diminished, other (Stasis dermtitis both legs) Peripheral Pulses: within normal limits - Abdominal General gastrointestinal: Present: soft, non-tender, non-distended, normal bowel sounds Male genitourinary: Present: normal - Integumentary Integumentary: Present: clear, warm, dry - Musculoskeletal Musculoskeletal: gait normal, strength equal bilaterally - Psychiatric Psychiatric: appropriate mood/affect, intact judgment & insight - Neurologic Neurologic: CNII-XII intact, moves all extremities Subjective Date of service: 07/03/18 Interval history: Pt seen and examined N/V improved denies any pain plan for amputation tomorrow, tolerated vascular procedure well today Objective - Constitutional Vitals: Vital Signs - 12hr 07/03/18 07/03/18 07/03/18 05:10 12:34 13:02 Temperature 98.8 F 98.5 F 98.8 F Pulse Rate 79 80 Respiratory 20 18 16 Rate Blood Pressure 147/72 128/59 133/62 O2 Sat by Pulse 100 97 Oximetry - Labs CBC & Chem 7: 07/04/18 06:38 07/04/18 06:38 Labs: Abnormal lab results 07/02/18 07/02/18 07/02/18 Range/Units 11:42 18:25 22:17 POC Glucose 146 H 180 H 120 H (70-105) 07/03/18 07/03/18 Range/Units 08:10 11:47 POC Glucose 162 H 177 H (70-105)
[2018-07-03 14:47] LABS: Hematocrit 26.6 % (35.5-45.6); Hemoglobin 8.6 gm/dl (11.8-15.2); Mean Corpuscular HGB Conc 32 % (32-34); Mean Corpuscular Volume 82 fl (84-94); Platelet Count 365 K/mm3 (140-440); Red Blood Count 3.24 M/mm3 (3.65-5.03); Red Cell Distribution Width 15.6 % (13.2-15.2)
[2018-07-03] MEDS: LOVENOX SUB-Q SCH (22:14)
[2018-07-03] MEDS: LANTUS SUB-Q SCH (22:23)
[2018-07-04] MEDS: NACL 0.9% 1000 ML 1,000 ML IV SCH (00:03)
[2018-07-04] MEDS: ZOSYN/NS 4.5GM/100ML 4.5 GM/100 ML VIAL IV SCH ×3 (06:02→23:10)
[2018-07-04 07:50] LABS: BUN/Creatinine Ratio 11; Blood Urea Nitrogen 9 mg/dL (9-20); Calcium 7.8 mg/dL (8.4-10.2); Hemolysis Index 4
[2018-07-04 08:01] LABS: Hematocrit 25.3 % (35.5-45.6); Hemoglobin 8.5 gm/dl (11.8-15.2); Mean Corpuscular HGB Conc 34 % (32-34); Mean Corpuscular Volume 81 fl (84-94); Platelet Count 391 K/mm3 (140-440); Red Blood Count 3.14 M/mm3 (3.65-5.03); Red Cell Distribution Width 15.3 % (13.2-15.2)
[2018-07-04] MEDS: HumaLOG SUB-Q SCH ×4 (08:21→23:12)
[2018-07-04] MEDS: GLUCOTROL PO SCH ×2 (08:22→17:38)
[2018-07-04 08:58] LABS: Anisocytosis 1+; Basophils % (Manual) 0 % (0.0-1.8); Hypochromasia 1+; Total Cells Counted 100
[2018-07-04 08:59] LABS: Ovalocytes Few; Platelet Estimate Consistent w Auto
[2018-07-04] MEDS ORDERED: D50W (25GM) Syringe IV PRN (11:33)
[2018-07-04] MEDS: VANCOMYCIN 1,500 MG in NACL 0.9% 500 ML 500 ML IV SCH ×2 (12:20→23:09)
[2018-07-04] MEDS: MUCINEX ER PO SCH ×2 (12:25→23:09)
[2018-07-04] MEDS: PLAVIX PO SCH (12:25)
--- NOTE | 2018-07-04 12:45 | Progress Note ---
Assessment and Plan / Diabetic right foot with ulcer Pt's arterial duplex showed monophasic flow to his right foot. In light of several week h/o non-healing wounds, VS recommend arteriogram with possible revascularization - which has done today Consulted GS dr Dobson for possible amputation and I/D of right foot - planned for today / Intractable nausea and vomiting, now resolved IV Fluids and IV Zofran as needed Possible sec to uncontrolled DM with gastroparesis and Metformin Metformin on Hold / T2DM (type 2 diabetes mellitus) Cont High dose sliding scale coverage Check A1c, consistent carb diet /Cellulitis of right foot with sepsis IV abx for now / Anemia likley from chronic disease low iron with normal % of saturation and low binding capacity /hypoglycemia, likely due to NPO status D50 as needed, change iv fluid to D5 Ns / DVT prophylaxis On Lovenox Brief history: 62 years old male with a history of diabetes presented to the ER complaining of diffuse abdominal pain, cramping in nature associated with nausea and vomiting. Patient stated that he is not able to keep anything down for the last 3 days. He also has a right foot ulcer on great toe. Physical exam: General appearance: Present: no acute distress, well-nourished - EENT Eyes: Present: PERRL ENT: hearing intact, clear oral mucosa - Neck Neck: Present: supple, normal ROM - Respiratory Respiratory effort: normal Respiratory: bilateral: CTA - Cardiovascular Heart rate: 78 Rhythm: regular Heart Sounds: Present: S1 & S2. Absent: rub, click - Extremities Extremities: No edema, abnormal both foot - covered with wound dressing Extremity abnormal: edema (Both Lower extremities), pulses diminished, other (Stasis dermtitis both legs) Peripheral Pulses: within normal limits - Abdominal General gastrointestinal: Present: soft, non-tender, non-distended, normal bowel sounds Male genitourinary: Present: normal - Integumentary Integumentary: Present: clear, warm, dry - Musculoskeletal Musculoskeletal: gait normal, strength equal bilaterally - Psychiatric Psychiatric: appropriate mood/affect, intact judgment & insight - Neurologic Neurologic: CNII-XII intact, moves all extremities Subjective Date of service: 07/04/18 Interval history: Pt seen and examined N/V improved denies any pain plan for amputation today, discussed with family at bedside Objective - Constitutional Vitals: Vital Signs - 12hr 07/04/18 07/04/18 05:09 12:05 Temperature 97.5 F L 98.9 F Pulse Rate 80 73 Respiratory 18 20 Rate Blood Pressure 132/64 143/64 O2 Sat by Pulse 96 97 Oximetry - Labs CBC & Chem 7: 07/05/18 06:10 07/05/18 06:10 Labs: Abnormal lab results 07/03/18 07/03/18 07/03/18 Range/Units 14:08 14:08 16:07 WBC 19.0 H (4.5-11.0) K/mm3 RBC 3.24 L (3.65-5.03) M/mm3 Hgb 8.6 L (11.8-15.2) gm/dl Hct 26.6 L (35.5-45.6) % MCV 82 L (84-94) fl MCH 26 L (28-32) pg RDW 15.6 H (13.2-15.2) % Seg Neuts % (Manual) (40.0-70.0) % Lymphocytes % (Manual) (13.4-35.0) % Monocytes % (Manual) (0.0-7.3) % Seg Neutrophils # Man (1.8-7.7) K/mm3 Monocytes # (Manual) (0.0-0.8) K/mm3 Potassium (3.6-5.0) mmol/L Carbon Dioxide (22-30) mmol/L POC Glucose 127 H (70-105) Hemoglobin A1c 7.3 H (4-6) % Calcium (8.4-10.2) mg/dL 07/04/18 07/04/18 07/04/18 Range/Units 06:38 06:38 11:25 WBC 16.7 H (4.5-11.0) K/mm3 RBC 3.14 L (3.65-5.03) M/mm3 Hgb 8.5 L (11.8-15.2) gm/dl Hct 25.3 L (35.5-45.6) % MCV 81 L (84-94) fl MCH 27 L (28-32) pg RDW 15.3 H (13.2-15.2) % Seg Neuts % (Manual) 81.0 H (40.0-70.0) % Lymphocytes % (Manual) 7.0 L (13.4-35.0) % Monocytes % (Manual) 11.0 H (0.0-7.3) % Seg Neutrophils # Man 13.5 H (1.8-7.7) K/mm3 Monocytes # (Manual) 1.8 H (0.0-0.8) K/mm3 Potassium 3.4 L (3.6-5.0) mmol/L Carbon Dioxide 21 L (22-30) mmol/L POC Glucose 68 L (70-105) Hemoglobin A1c (4-6) % Calcium 7.8 L (8.4-10.2) mg/dL
[2018-07-04] MEDS: DAKIN'S HALF STRENGTH TP SCH (12:51)
[2018-07-04] MEDS: KCL 10MEQ/100ML 10 MEQ/100 ML BAG IV SCH ×2 (13:40→15:30)
--- NOTE | 2018-07-04 16:45 | Event Note ---
Date: 07/04/18 Pt s/p revascularization, and noted to have gas in the foot on X-ray intra-op. Wound care surgeon contacted, and the pt was subsequently evaluated. An urgent bedside I&D performed. His foot reportedly did not appear to be salvageable, and BKA recommended. I followed up with the pt today. We had a long discussion about indications of amputation, and the benefits of BKA over AKA from an ambulatory stand point. We also discussed the risk of the infection progressing and compromising his ability to have BKA. Pt stated understanding and was reconsidering amputation. Dr Dobson to f/u with pt later today for additional surgical intervention.
[2018-07-04] MEDS ORDERED: LACTATED RINGERS 1,000 ML ONE ×3 (16:50→21:09)
--- NOTE | 2018-07-04 17:28 | Anesthesia Day of Surgery ---
Anesthesia Day of Surgery - Day of Surgery Patient Examined: Yes Patient H&P Reviewed: Yes Patient is NPO: Yes Beta Blockers: No Cardiac Clearance: No Pulmonary Clearance: No Navi's Test: N/A
--- NOTE | 2018-07-04 17:34 | Anesthesia Consultation ---
Anesthesia Consult and Med Hx - Airway Anesthetic Teeth Evaluation: Poor, Edentulous (upper ) ROM Head & Neck: Adequate Mental/Hyoid Distance: Adequate Mallampati Class: Class III Intubation Access Assessment: Probably Good - Pulmonary Exam CTA: Yes - Cardiac Exam Cardiac Exam: RRR - Pre-Operative Health Status ASA Pre-Surgery Classification: ASA4 Proposed Anesthetic Plan: General - Pre-Anesthesia Comment Pre-Anesthesia Comments: / Diabetic right foot with ulcer. / Intractable nausea and vomiting, now resolved. / T2DM (type 2 diabetes mellitus). /Cellulitis of right foot with sepsis. / Anemia likley from chronic disease. /hypoglycemia, likely due to NPO status. - Pulmonary Hx Asthma: No COPD: No Hx Pneumonia: No - Endocrine Hx End Stage Renal Disease: No - Hematic Hx Anemia: No - Additional Comments Anesthesia Medical History Comments: 62 years old male with uncontrolled DM p/t ER c/o diffuse abdominal pain, cramping in nature associated with nausea and vomiting. Has R. foot ulcer of great toe that is now cellulitis and sepsis with uptrending WBC and fever. Scheduled for BKA
[2018-07-04] MEDS ORDERED: DILAUDID ONE ×3 (17:55→21:17)
[2018-07-04] MEDS ORDERED: DIPRIVAN 10 MG/ML IV ONE (17:55)
[2018-07-04] MEDS ORDERED: QUELICIN ONE (18:00)
[2018-07-04] MEDS ORDERED: ZEMURON IV ONE (18:00)
[2018-07-04] MEDS ORDERED: XYLOCAINE MPF 2% ONE (18:00)
[2018-07-04] MEDS ORDERED: ZOFRAN ONE (20:43)
--- NOTE | 2018-07-04 20:43 | Post Operative Note ---
Pre-op diagnosis: Gangrenous/infected right foot -diabetic Post-op diagnosis: same Procedure: Right BKA Anesthesia: GETA Surgeon: LILY FENTON Estimated blood loss: other (300 ml) Pathology: list (Right foot and leg) Specimen disposition: to lab Condition: stable Disposition: PACU
[2018-07-04] MEDS ORDERED: SUBLIMAZE IV PRN (21:15)
[2018-07-04] MEDS ORDERED: ZOFRAN IV PRN (21:15)
[2018-07-04] MEDS ORDERED: DILAUDID IV PRN (21:15)
[2018-07-04] MEDS: LOVENOX SUB-Q SCH (23:09)
[2018-07-04] MEDS: LANTUS SUB-Q SCH (23:11)
[2018-07-05] MEDS: KCL 10MEQ/100ML 10 MEQ/100 ML BAG IV SCH (00:32)
[2018-07-05] MEDS: DAKIN'S HALF STRENGTH TP SCH ×3 (00:39→23:18)
[2018-07-05] MEDS: D5NS 1,000 ML IV SCH (01:11)
[2018-07-05] MEDS: MORPHINE IV PRN ×7 (01:11→23:09)
[2018-07-05] MEDS: TYLENOL PO PRN (02:57)
[2018-07-05] MEDS: ZOSYN/NS 4.5GM/100ML 4.5 GM/100 ML VIAL IV SCH ×3 (05:01→23:09)
[2018-07-05 06:57] LABS: Hematocrit 22.8 % (35.5-45.6); Hemoglobin 7.5 gm/dl (11.8-15.2); Mean Corpuscular HGB Conc 33 % (32-34); Mean Corpuscular Volume 82 fl (84-94); Platelet Count 344 K/mm3 (140-440); Red Blood Count 2.79 M/mm3 (3.65-5.03); Red Cell Distribution Width 15.6 % (13.2-15.2)
[2018-07-05 07:06] LABS: BUN/Creatinine Ratio 13; Blood Urea Nitrogen 10 mg/dL (9-20); Calcium 7.4 mg/dL (8.4-10.2); Hemolysis Index 1
[2018-07-05 07:46] LABS: Anisocytosis 1+; Band Neutrophils # (Manual) 0.8 K/mm3; Basophils % (Manual) 0 % (0.0-1.8); Total Cells Counted 100
[2018-07-05 07:47] LABS: Hypochromasia 1+; Target Cells Few
[2018-07-05] MEDS: GLUCOTROL PO SCH ×2 (08:08→18:04)
[2018-07-05] MEDS: VANCOMYCIN 1,500 MG in NACL 0.9% 500 ML 500 ML IV SCH ×2 (10:33→23:09)
[2018-07-05] MEDS: PLAVIX PO SCH (10:34)
[2018-07-05] MEDS: MUCINEX ER PO SCH ×2 (10:34→23:10)
[2018-07-05] MEDS: HumaLOG SUB-Q SCH ×4 (10:35→23:18)
--- NOTE | 2018-07-05 12:16 | Procedure Note ---
Date of procedure: 07/04/18 Pre-op diagnosis: Diabetic infected/gangrenous right foot Post-op diagnosis: same Procedure: Right BKA Description of procedure: Pt was placed supine on the OR table. GETA was administered. Pt's right leg and thigh were prepped and draped. Skin was inc ised with a long posterior flap. Hemostasis was obtained with the Bovie and stick ties of 2-0 silk. Muscle compartments were divided with the Bovie. The anterior tibial, posterior tibial and peroneal vessels were ligated with stick ties of 2-0 silk. The periosteum was elevated off of the tibia and fibula and these were amputated with the bone saw. The posterior muscle compartments were transected with the guillotine knife and the right leg and foot passed off of the table. Additional bleeding vessels were controlled with stick ties of 2-0 silk and the Bovie. Wound was irrigated with warm saline. The anterior and posterior fascia were approximated with interrupted sutures of 2-0 Vicry. Skin was approximated with alex. Sterile 4 X 4's were applied to the wound and these were secured with a Kerlix and Coban wrap. Pt tolerated the procedure well. Pt was taken to PACU in stable condition. Findings: Subcutaneous tissue was edematous and calcified. Anesthesia: GETA Surgeon: LILY FENTON Estimated blood loss: other (300 ml) Pathology: list (Right leg and foot) Specimen disposition: to lab Condition: stable Disposition: PACU
--- NOTE | 2018-07-05 12:21 | Progress Note ---
Assessment and Plan - Patient Problems (1) Abscess of tendon of right foot Current Visit: Yes Status: Acute Plan to address problem: 1) Continue IV Morphine 2) Strict DM control 3) Convert to po narcotics when able. 4) Continue IV antibiotics. Subjective Date of service: 07/05/18 Patient Reports: Positive: other (C/o pain and stump site) Objective Vital Signs - 12hr 07/05/18 07/05/18 07/05/18 01:11 04:29 08:08 Temperature 97.4 F L Pulse Rate 74 Respiratory 18 18 20 Rate Blood Pressure 145/74 O2 Sat by Pulse 99 Oximetry 07/05/18 11:04 Temperature Pulse Rate Respiratory 20 Rate Blood Pressure O2 Sat by Pulse Oximetry - Musculoskeletal other (Right BKA dressing is clean and dry.) - Labs 07/05/18 06:10 07/05/18 06:10 Diabetes panel 07/05/18 Range/Units 06:10 Sodium 138 (137-145) mmol/L Potassium 4.2 D (3.6-5.0) mmol/L Chloride 105.5 (98-107) mmol/L Carbon Dioxide 22 (22-30) mmol/L BUN 10 (9-20) mg/dL Creatinine 0.8 (0.8-1.5) mg/dL Glucose 192 H (75-100) mg/dL Calcium 7.4 L (8.4-10.2) mg/dL Calcium panel 07/05/18 Range/Units 06:10 Calcium 7.4 L (8.4-10.2) mg/dL Pituitary panel 07/05/18 Range/Units 06:10 Sodium 138 (137-145) mmol/L Potassium 4.2 D (3.6-5.0) mmol/L Chloride 105.5 (98-107) mmol/L Carbon Dioxide 22 (22-30) mmol/L BUN 10 (9-20) mg/dL Creatinine 0.8 (0.8-1.5) mg/dL Glucose 192 H (75-100) mg/dL Calcium 7.4 L (8.4-10.2) mg/dL Adrenal panel 07/05/18 Range/Units 06:10 Sodium 138 (137-145) mmol/L Potassium 4.2 D (3.6-5.0) mmol/L Chloride 105.5 (98-107) mmol/L Carbon Dioxide 22 (22-30) mmol/L BUN 10 (9-20) mg/dL Creatinine 0.8 (0.8-1.5) mg/dL Glucose 192 H (75-100) mg/dL Calcium 7.4 L (8.4-10.2) mg/dL
--- NOTE | 2018-07-05 14:53 | Progress Note ---
Assessment and Plan / Diabetic right foot with ulcer Pt's arterial duplex showed monophasic flow to his right foot. In light of several week h/o non-healing wounds, s/p arteriogram with revascularization Consulted GS dr Dobson, s/p BKA amputation yesterday PT/OT consult / Intractable nausea and vomiting, now resolved IV Fluids and IV Zofran as needed Possible sec to uncontrolled DM with gastroparesis and Metformin Metformin on Hold / T2DM (type 2 diabetes mellitus) Cont High dose sliding scale coverage A1c 7.3, consistent carb diet /Cellulitis of right foot with sepsis IV abx for now / Anemia likley from chronic disease low iron with normal % of saturation and low binding capacity /hypoglycemia, resolved, likely due to NPO status s/p D50 and D5 Ns / DVT prophylaxis On Lovenox Brief history: 62 years old male with a history of diabetes presented to the ER complaining of diffuse abdominal pain, cramping in nature associated with nausea and vomiting. Patient stated that he is not able to keep anything down for the last 3 days. He also has a right foot ulcer on great toe. Physical exam: General appearance: Present: no acute distress, well-nourished - EENT Eyes: Present: PERRL ENT: hearing intact, clear oral mucosa - Neck Neck: Present: supple, normal ROM - Respiratory Respiratory effort: normal Respiratory: bilateral: CTA - Cardiovascular Heart rate: 78 Rhythm: regular Heart Sounds: Present: S1 & S2. Absent: rub, click - Extremities Extremities: No edema, abnormal both foot - covered with wound dressing Extremity abnormal: edema (Both Lower extremities), pulses diminished, other (Stasis dermtitis both legs) Peripheral Pulses: within normal limits - Abdominal General gastrointestinal: Present: soft, non-tender, non-distended, normal bowel sounds Male genitourinary: Present: normal - Integumentary Integumentary: Present: clear, warm, dry - Musculoskeletal Musculoskeletal: gait normal, strength equal bilaterally - Psychiatric Psychiatric: appropriate mood/affect, intact judgment & insight - Neurologic Neurologic: CNII-XII intact, moves all extremities Subjective Date of service: 07/05/18 Interval history: Pt seen and examined N/V improved c/o RLE pain at the amputation site, otherwise doing well Objective - Constitutional Vitals: Vital Signs - 12hr 07/05/18 07/05/18 07/05/18 04:29 08:08 11:04 Temperature 97.4 F L Pulse Rate 74 Respiratory 18 20 20 Rate Blood Pressure 145/74 O2 Sat by Pulse 99 Oximetry 07/05/18 11:59 Temperature 97.6 F Pulse Rate 84 Respiratory 22 Rate Blood Pressure 148/77 O2 Sat by Pulse 97 Oximetry - Labs CBC & Chem 7: 07/05/18 06:10 07/05/18 06:10 Labs: Abnormal lab results 07/04/18 07/04/18 07/04/18 Range/Units 13:41 16:08 17:13 WBC (4.5-11.0) K/mm3 RBC (3.65-5.03) M/mm3 Hgb (11.8-15.2) gm/dl Hct (35.5-45.6) % MCV (84-94) fl MCH (28-32) pg RDW (13.2-15.2) % Seg Neuts % (Manual) (40.0-70.0) % Lymphocytes % (Manual) (13.4-35.0) % Seg Neutrophils # Man (1.8-7.7) K/mm3 Lymphocytes # (Manual) (1.2-5.4) K/mm3 Glucose (75-100) mg/dL POC Glucose 158 H 113 H 110 H (70-105) Calcium (8.4-10.2) mg/dL 07/04/18 07/04/18 07/05/18 Range/Units 21:17 23:09 06:10 WBC 14.0 H (4.5-11.0) K/mm3 RBC 2.79 L (3.65-5.03) M/mm3 Hgb 7.5 L (11.8-15.2) gm/dl Hct 22.8 L (35.5-45.6) % MCV 82 L (84-94) fl MCH 27 L (28-32) pg RDW 15.6 H (13.2-15.2) % Seg Neuts % (Manual) 79.0 H (40.0-70.0) % Lymphocytes % (Manual) 7.0 L (13.4-35.0) % Seg Neutrophils # Man 11.1 H (1.8-7.7) K/mm3 Lymphocytes # (Manual) 1.0 L (1.2-5.4) K/mm3 Glucose (75-100) mg/dL POC Glucose 147 H 198 H (70-105) Calcium (8.4-10.2) mg/dL 07/05/18 07/05/18 07/05/18 Range/Units 06:10 07:46 12:05 WBC (4.5-11.0) K/mm3 RBC (3.65-5.03) M/mm3 Hgb (11.8-15.2) gm/dl Hct (35.5-45.6) % MCV (84-94) fl MCH (28-32) pg RDW (13.2-15.2) % Seg Neuts % (Manual) (40.0-70.0) % Lymphocytes % (Manual) (13.4-35.0) % Seg Neutrophils # Man (1.8-7.7) K/mm3 Lymphocytes # (Manual) (1.2-5.4) K/mm3 Glucose 192 H (75-100) mg/dL POC Glucose 181 H 163 H (70-105) Calcium 7.4 L (8.4-10.2) mg/dL
[2018-07-05] MEDS: LOVENOX SUB-Q SCH (23:10)
[2018-07-05] MEDS: LANTUS SUB-Q SCH (23:17)
[2018-07-06] MEDS: ZOSYN/NS 4.5GM/100ML 4.5 GM/100 ML VIAL IV SCH ×3 (05:19→21:29)
[2018-07-06] MEDS: MORPHINE IV PRN ×5 (05:19→21:31)
[2018-07-06] MEDS: HumaLOG SUB-Q SCH ×4 (08:26→23:11)
[2018-07-06] MEDS: PLAVIX PO SCH (09:27)
[2018-07-06] MEDS: MUCINEX ER PO SCH ×2 (09:29→21:30)
[2018-07-06] MEDS: GLUCOTROL PO SCH ×2 (09:29→17:46)
[2018-07-06] MEDS: DAKIN'S HALF STRENGTH TP SCH ×2 (10:21→21:36)
[2018-07-06] MEDS: VANCOMYCIN 1,500 MG in NACL 0.9% 500 ML 500 ML IV SCH ×2 (10:23→21:35)
[2018-07-06 12:26] LABS: Hemoglobin 7.7 gm/dl (11.8-15.2); Mean Corpuscular HGB Conc 34 % (32-34); Mean Corpuscular Volume 82 fl (84-94); Platelet Count 424 K/mm3 (140-440); Red Blood Count 2.82 M/mm3 (3.65-5.03); Red Cell Distribution Width 15.5 % (13.2-15.2)
[2018-07-06] MEDS: D5NS 1,000 ML IV SCH (15:31)
[2018-07-06] MEDS: LANTUS SUB-Q SCH (21:30)
[2018-07-06] MEDS: LOVENOX SUB-Q SCH (21:30)
[2018-07-07] MEDS: ZOSYN/NS 4.5GM/100ML 4.5 GM/100 ML VIAL IV SCH ×3 (05:23→21:26)
[2018-07-07] MEDS: MORPHINE IV PRN ×2 (05:23→11:48)
[2018-07-07] MEDS: HumaLOG SUB-Q SCH ×4 (08:24→21:57)
--- NOTE | 2018-07-07 09:19 | Progress Note ---
Assessment and Plan / Diabetic right foot with ulcer Pt's arterial duplex showed monophasic flow to his right foot. 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 PT/OT consult, needs rehab on d/c, CM consulted / Intractable nausea and vomiting, now resolved IV Fluids and IV Zofran as needed Possible sec to uncontrolled DM with gastroparesis and Metformin Metformin on Hold / T2DM (type 2 diabetes mellitus) Cont High dose sliding scale coverage A1c 7.3, consistent carb diet /Cellulitis of right foot with sepsis IV abx for now / Anemia likley from chronic disease low iron with normal % of saturation and low binding capacity /hypoglycemia, resolved, likely due to NPO status s/p D50 and D5 Ns / DVT prophylaxis On Lovenox Brief history: 62 years old male with a history of diabetes presented to the ER complaining of diffuse abdominal pain, cramping in nature associated with nausea and vomiting. Patient stated that he is not able to keep anything down for the last 3 days. He also has a right foot ulcer on great toe. Physical exam: General appearance: Present: no acute distress, well-nourished - EENT Eyes: Present: PERRL ENT: hearing intact, clear oral mucosa - Neck Neck: Present: supple, normal ROM - Respiratory Respiratory effort: normal Respiratory: bilateral: CTA - Cardiovascular Heart rate: 78 Rhythm: regular Heart Sounds: Present: S1 & S2. Absent: rub, click - Extremities Extremities: No edema, abnormal both foot - covered with wound dressing Extremity abnormal: edema (Both Lower extremities), pulses diminished, other (Stasis dermtitis both legs) Peripheral Pulses: within normal limits - Abdominal General gastrointestinal: Present: soft, non-tender, non-distended, normal bowel sounds Male genitourinary: Present: normal - Integumentary Integumentary: Present: clear, warm, dry - Musculoskeletal Musculoskeletal: gait normal, strength equal bilaterally - Psychiatric Psychiatric: appropriate mood/affect, intact judgment & insight - Neurologic Neurologic: CNII-XII intact, moves all extremities Subjective Date of service: 07/06/18 Interval history: Pt seen and examined N/V improved c/o RLE pain at the amputation site, otherwise doing well Objective - Constitutional Vitals: Vital Signs - 12hr 0207/07/18 07/07/18 22:00 00:05 05:18 Temperature 99.1 F 98.0 F Pulse Rate 78 81 Pulse Rate [ 74 Right Radial] Respiratory 18 20 20 Rate Blood Pressure 148/74 153/80 O2 Sat by Pulse 98 97 Oximetry - Labs CBC & Chem 7: 07/07/18 10:17 07/07/18 10:17 Labs: Abnormal lab results 07/06/18 07/06/18 07/06/18 Range/Units 11:09 12:07 16:50 WBC 12.2 H (4.5-11.0) K/mm3 RBC 2.82 L (3.65-5.03) M/mm3 Hgb 7.7 L (11.8-15.2) gm/dl Hct 23.0 L (35.5-45.6) % MCV 82 L (84-94) fl MCH 27 L (28-32) pg RDW 15.5 H (13.2-15.2) % POC Glucose 160 H 146 H (70-105) 07/06/18 07/07/18 Range/Units 22:02 08:19 WBC (4.5-11.0) K/mm3 RBC (3.65-5.03) M/mm3 Hgb (11.8-15.2) gm/dl Hct (35.5-45.6) % MCV (84-94) fl MCH (28-32) pg RDW (13.2-15.2) % POC Glucose 189 H 131 H (70-105)
[2018-07-07] MEDS: DAKIN'S HALF STRENGTH TP SCH ×2 (10:00→21:27)
[2018-07-07 10:44] LABS: Hematocrit 22.3 % (35.5-45.6); Hemoglobin 7.4 gm/dl (11.8-15.2); Mean Corpuscular HGB Conc 33 % (32-34); Mean Corpuscular Volume 81 fl (84-94); Platelet Count 428 K/mm3 (140-440); Red Blood Count 2.76 M/mm3 (3.65-5.03); Red Cell Distribution Width 15.9 % (13.2-15.2)
[2018-07-07 11:05] LABS: BUN/Creatinine Ratio 7; Blood Urea Nitrogen 6 mg/dL (9-20); Calcium 7.3 mg/dL (8.4-10.2); Hemolysis Index 0
[2018-07-07] MEDS: VANCOMYCIN 1,500 MG in NACL 0.9% 500 ML 500 ML IV SCH ×2 (11:48→21:26)
[2018-07-07] MEDS: PLAVIX PO SCH (11:52)
[2018-07-07] MEDS: MUCINEX ER PO SCH ×2 (11:52→21:26)
[2018-07-07] MEDS: GLUCOTROL PO SCH ×2 (12:03→19:09)
--- NOTE | 2018-07-07 16:18 | Progress Note ---
Assessment and Plan / Diabetic right foot with ulcer Pt's arterial duplex showed monophasic flow to his right foot. 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 PT/OT consult, needs rehab on d/c, CM consulted / Intractable nausea and vomiting, now resolved IV Fluids and IV Zofran as needed Possible sec to uncontrolled DM with gastroparesis and Metformin Metformin on Hold / T2DM (type 2 diabetes mellitus) Cont High dose sliding scale coverage A1c 7.3, consistent carb diet /Cellulitis of right foot with sepsis IV abx for now / Anemia likley from chronic disease low iron with normal % of saturation and low binding capacity /HTN, start on coreg /hypoglycemia, resolved, likely due to NPO status s/p D50 and D5 Ns / DVT prophylaxis On Lovenox Brief history: 62 years old male with a history of diabetes presented to the ER complaining of diffuse abdominal pain, cramping in nature associated with nausea and vomiting. Patient stated that he is not able to keep anything down for the last 3 days. He also has a right foot ulcer on great toe. Physical exam: General appearance: Present: no acute distress, well-nourished - EENT Eyes: Present: PERRL ENT: hearing intact, clear oral mucosa - Neck Neck: Present: supple, normal ROM - Respiratory Respiratory effort: normal Respiratory: bilateral: CTA - Cardiovascular Heart rate: 78 Rhythm: regular Heart Sounds: Present: S1 & S2. Absent: rub, click - Extremities Extremities: No edema, abnormal both foot - covered with wound dressing Extremity abnormal: edema (Both Lower extremities), pulses diminished, other (Stasis dermtitis both legs) Peripheral Pulses: within normal limits - Abdominal General gastrointestinal: Present: soft, non-tender, non-distended, normal bowel sounds Male genitourinary: Present: normal - Integumentary Integumentary: Present: clear, warm, dry - Musculoskeletal Musculoskeletal: gait normal, strength equal bilaterally - Psychiatric Psychiatric: appropriate mood/affect, intact judgment & insight - Neurologic Neurologic: CNII-XII intact, moves all extremities Subjective Date of service: 07/07/18 Interval history: Pt seen and examined N/V improved c/o RLE pain at the amputation site, otherwise doing well Objective - Constitutional Vitals: Vital Signs - 12hr 07/07/18 07/07/18 07/07/18 05:18 10:00 12:18 Temperature 98.0 F 98.4 F Pulse Rate 81 79 Pulse Rate [ 81 Right Radial] Respiratory 20 18 Rate Blood Pressure 153/80 146/77 O2 Sat by Pulse 97 97 96 Oximetry - Labs CBC & Chem 7: 07/07/18 10:17 07/07/18 10:17 Labs: Abnormal lab results 07/06/18 07/06/18 07/07/18 Range/Units 16:50 22:02 08:19 WBC (4.5-11.0) K/mm3 RBC (3.65-5.03) M/mm3 Hgb (11.8-15.2) gm/dl Hct (35.5-45.6) % MCV (84-94) fl MCH (28-32) pg RDW (13.2-15.2) % BUN (9-20) mg/dL Glucose (75-100) mg/dL POC Glucose 146 H 189 H 131 H (70-105) Calcium (8.4-10.2) mg/dL 07/07/18 07/07/18 Range/Units 10:17 10:17 WBC 12.3 H (4.5-11.0) K/mm3 RBC 2.76 L (3.65-5.03) M/mm3 Hgb 7.4 L (11.8-15.2) gm/dl Hct 22.3 L (35.5-45.6) % MCV 81 L (84-94) fl MCH 27 L (28-32) pg RDW 15.9 H (13.2-15.2) % BUN 6 L (9-20) mg/dL Glucose 162 H (75-100) mg/dL POC Glucose (70-105) Calcium 7.3 L (8.4-10.2) mg/dL
[2018-07-07] MEDS: D5NS 1,000 ML IV SCH (19:12)
[2018-07-07] MEDS: LOVENOX SUB-Q SCH (21:26)
[2018-07-07] MEDS: LANTUS SUB-Q SCH (21:58)
[2018-07-08] MEDS ORDERED: PERCOCET 5/325 PO PRN ×2 (00:47→12:59)
[2018-07-08] MEDS: ZOSYN/NS 4.5GM/100ML 4.5 GM/100 ML VIAL IV SCH ×3 (05:10→22:43)
[2018-07-08] MEDS: HumaLOG SUB-Q SCH ×4 (07:30→22:45)
[2018-07-08] MEDS: MUCINEX ER PO SCH ×2 (11:05→22:45)
[2018-07-08] MEDS: VANCOMYCIN 1,500 MG in NACL 0.9% 500 ML 500 ML IV SCH ×2 (11:05→22:58)
[2018-07-08] MEDS: GLUCOTROL PO SCH (11:05)
[2018-07-08] MEDS: D5NS 1,000 ML IV SCH (11:09)
[2018-07-08] MEDS: PLAVIX PO SCH (11:09)
[2018-07-08] MEDS: COREG PO SCH ×2 (11:09→22:47)
[2018-07-08] MEDS: DAKIN'S HALF STRENGTH TP SCH ×2 (12:38→22:46)
[2018-07-08] MEDS ORDERED: DULCOLAX PR NR (13:00)
--- NOTE | 2018-07-08 13:03 | Progress Note ---
Assessment and Plan - Patient Problems (1) Abscess of tendon of right foot Current Visit: Yes Status: Acute Plan to address problem: 1) I ordered Percocet prn. 2) Pt can be discharged from my perspective. 3) Discharge with crutches 4) F/u in my office in 2 weeks Subjective Date of service: 07/08/18 Patient Reports: Positive: no new complaints (Still taking IV narcotics.) Objective Vital Signs - 12hr 07/08/18 07/08/18 07/08/18 04:46 11:09 11:33 Temperature 99.0 F 98.3 F Pulse Rate 74 94 H 89 Respiratory 20 18 Rate Respiratory Rate [Right Leg ] Blood Pressure 150/74 151/71 142/77 O2 Sat by Pulse 97 95 Oximetry 07/08/18 07/08/18 12:43 12:44 Temperature Pulse Rate Respiratory 16 Rate Respiratory 16 Rate [Right Leg ] Blood Pressure O2 Sat by Pulse Oximetry - Integumentary other (Right BKA stump is clean.) - Labs 07/07/18 10:17 07/07/18 10:17
--- NOTE | 2018-07-08 14:07 | Progress Note ---
Assessment and Plan Assessment and plan: Patient is 62 year old man with a history of DM type 2 who presented to the ER complaining of diffuse abdominal pain, cramping in nature associated with nausea and vomiting. Patient stated that he is not able to keep anything down for the last 3 days. He also has a right foot ulcer on great toe. / Diabetic right foot with ulcer/ Abscess of tendon of right foot Pt's arterial duplex showed monophasic flow to his right foot. 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 PT/OT consult, needs rehab on d/c, CM consulted / Intractable nausea and vomiting, IV Fluids and IV Zofran as needed Possible sec to uncontrolled DM with gastroparesis and Metformin Metformin on Hold / T2DM (type 2 diabetes mellitus) Cont High dose sliding scale coverage A1c 7.3, consistent carb diet /Cellulitis of right foot with sepsis IV abx for now / Anemia likley from chronic disease low iron with normal % of saturation and low binding capacity /HTN, start on coreg /hypoglycemia, resolved, likely due to NPO status s/p D50 and D5 Ns / DVT prophylaxis On Lovenox History Interval history: Patient was seen and examined. Follow-up on current diagnosis of foot infection. Still has nausea. Overnight uneventful. Patient denies any chest pain, shortness breath,or severe headaches. Imaging, nursing note, chart, labs and old chart reviewed. Discussed with patient. Hospitalist Physical - Physical exam Narrative exam: Gen: WDWN, NAD, Awake, Alert, Orientated HEENT: NCAT, EOMI, PERRL, OP Clear Neck: supple, no adenopathy, no thyromegaly, no JVD CVS/Heart: RRR, normal S1S2, pulses present bilaterally Chest/Lungs: CTA B, Symmetrical chest expansion, good air entry bilaterally GI/Abdomen: soft, NTND, good bowel sounds, no guarding or rebound /Bladder: no suprapubic tenderness, no CVA or paraspinal tenderness Extermity/Skin: No edema, abnormal both foot - covered with wound dressing, edema (Both Lower extremities), pulses diminished, other (Stasis dermtitis both legs) Peripheral Pulses: within normal limits MSK: FROM x 4 Neuro: CN 2-12 grossly intact, no new focal deficits Psych: calm - Constitutional Vitals: Temp Pulse Resp BP Pulse Ox 98.3 F 89 16 142/77 95 07/08/18 11:33 07/08/18 11:33 07/08/18 12:44 07/08/18 11:33 07/08/18 11:33 General appearance: Present: no acute distress Results - Labs CBC & Chem 7: 07/09/18 04:45 07/07/18 10:17 Labs: Laboratory Last Values WBC 12.3 K/mm3 (4.5-11.0) H 07/07/18 10:17 RBC 2.76 M/mm3 (3.65-5.03) L 07/07/18 10:17 Hgb 7.4 gm/dl (11.8-15.2) L 07/07/18 10:17 Hct 22.3 % (35.5-45.6) L 07/07/18 10:17 MCV 81 fl (84-94) L 07/07/18 10:17 MCH 27 pg (28-32) L 07/07/18 10:17 MCHC 33 % (32-34) 07/07/18 10:17 RDW 15.9 % (13.2-15.2) H 07/07/18 10:17 Plt Count 428 K/mm3 (140-440) 07/07/18 10:17 Lymph % (Auto) Desizing Machine Offbearer 07/04/18 06:38 [place] % (Auto) Desizing Machine Offbearer 07/04/18 06:38 Eos % (Auto) Desizing Machine Offbearer 07/04/18 06:38 Baso % (Auto) Desizing Machine Offbearer 07/04/18 06:38 Lymph # Desizing Machine Offbearer 07/04/18 06:38 [place] # Desizing Machine Offbearer 07/04/18 06:38 Eos # Desizing Machine Offbearer 07/04/18 06:38 Baso # Desizing Machine Offbearer 07/04/18 06:38 Add Manual Diff Complete 07/05/18 06:10 Total Counted 100 07/05/18 06:10 Seg Neutrophils % Desizing Machine Offbearer 07/04/18 06:38 Seg Neuts % (Manual) 79.0 % (40.0-70.0) H 07/05/18 06:10 Band Neutrophils % 6.0 % 07/05/18 06:10 Lymphocytes % (Manual) 7.0 % (13.4-35.0) L 07/05/18 06:10 Reactive Lymphs % (Man) 0 % 07/05/18 06:10 Monocytes % (Manual) 5.0 % (0.0-7.3) 07/05/18 06:10 Eosinophils % (Manual) 3.0 % (0.0-4.3) 07/05/18 06:10 Basophils % (Manual) 0 % (0.0-1.8) 07/05/18 06:10 Metamyelocytes % 0 % 07/05/18 06:10 Myelocytes % 0 % 07/05/18 06:10 Promyelocytes % 0 % 07/05/18 06:10 Blast Cells % 0 % 07/05/18 06:10 Nucleated RBC % Not Reportable 07/05/18 06:10 Seg Neutrophils # Desizing Machine Offbearer 07/04/18 06:38 Seg Neutrophils # Man 11.1 K/mm3 (1.8-7.7) H 07/05/18 06:10 Band Neutrophils # 0.8 K/mm3 07/05/18 06:10 Lymphocytes # (Manual) 1.0 K/mm3 (1.2-5.4) L 07/05/18 06:10 Abs React Lymphs (Man) 0.0 K/mm3 07/05/18 06:10 Monocytes # (Manual) 0.7 K/mm3 (0.0-0.8) 07/05/18 06:10 Eosinophils # (Manual) 0.4 K/mm3 (0.0-0.4) 07/05/18 06:10 Basophils # (Manual) 0.0 K/mm3 (0.0-0.1) 07/05/18 06:10 Metamyelocytes # 0.0 K/mm3 07/05/18 06:10 Myelocytes # 0.0 K/mm3 07/05/18 06:10 Promyelocytes # 0.0 K/mm3 07/05/18 06:10 Blast Cells # 0.0 K/mm3 07/05/18 06:10 WBC Morphology Not Reportable 07/05/18 06:10 Hypersegmented Neuts Not Reportable 07/05/18 06:10 Hyposegmented Neuts Not Reportable 07/05/18 06:10 Hypogranular Neuts Not Reportable 07/05/18 06:10 Smudge Cells Not Reportable 07/05/18 06:10 Toxic Granulation Not Reportable 07/05/18 06:10 Toxic Vacuolation Not Reportable 07/05/18 06:10 Dohle Bodies Not Reportable 07/05/18 06:10 Pelger-Huet Anomaly Not Reportable 07/05/18 06:10 Marcelo Rods Not Reportable 07/05/18 06:10 Platelet Estimate Appears normal 07/05/18 06:10 Clumped Platelets Not Reportable 07/05/18 06:10 Plt Clumps, EDTA Not Reportable 07/05/18 06:10 Large Platelets Not Reportable 07/05/18 06:10 Giant Platelets Not Reportable 07/05/18 06:10 Platelet Satelliting Not Reportable 07/05/18 06:10 Plt Morphology Comment Not Reportable 07/05/18 06:10 RBC Morphology Not Reportable 07/05/18 06:10 Dimorphic RBCs Not Reportable 07/05/18 06:10 Polychromasia Not Reportable 07/05/18 06:10 Hypochromasia 1+ 07/05/18 06:10 Poikilocytosis Not Reportable 07/05/18 06:10 Anisocytosis 1+ 07/05/18 06:10 Microcytosis Not Reportable 07/05/18 06:10 Macrocytosis Not Reportable 07/05/18 06:10 Spherocytes Not Reportable 07/05/18 06:10 Pappenheimer Bodies Not Reportable 07/05/18 06:10 Sickle Cells Not Reportable 07/05/18 06:10 Target Cells Few 07/05/18 06:10 Tear Drop Cells Not Reportable 07/05/18 06:10 Ovalocytes Not Reportable 07/05/18 06:10 Helmet Cells Not Reportable 07/05/18 06:10 [place] Bodies Not Reportable 07/05/18 06:10 [place] Rings Not Reportable 07/05/18 06:10 [place] Cells Not Reportable 07/05/18 06:10 Bite Cells Not Reportable 07/05/18 06:10 Crenated Cell Not Reportable 07/05/18 06:10 Elliptocytes Not Reportable 07/05/18 06:10 Acanthocytes (Spur) Not Reportable 07/05/18 06:10 Rouleaux Not Reportable 07/05/18 06:10 Hemoglobin C Crystals Not Reportable 07/05/18 06:10 Schistocytes Not Reportable 07/05/18 06:10 Malaria parasites Not Reportable 07/05/18 06:10 Mumtaz Bodies Not Reportable 07/05/18 06:10 Hem Pathologist Commnt No 07/05/18 06:10 Sodium 141 mmol/L (137-145) 07/07/18 10:17 Potassium 3.7 mmol/L (3.6-5.0) 07/07/18 10:17 Chloride 105.8 mmol/L (98-107) 07/07/18 10:17 Carbon Dioxide 23 mmol/L (22-30) 07/07/18 10:17 Anion Gap 16 mmol/L 07/07/18 10:17 BUN 6 mg/dL (9-20) L 07/07/18 10:17 Creatinine 0.9 mg/dL (0.8-1.5) 07/07/18 10:17 Estimated GFR > 60 ml/min 07/07/18 10:17 BUN/Creatinine Ratio 7 % 07/07/18 10:17 Glucose 162 mg/dL (75-100) H 07/07/18 10:17 POC Glucose 149 (70-105) H 07/08/18 11:20 Hemoglobin A1c 7.3 % (4-6) H 07/03/18 14:08 Calcium 7.3 mg/dL (8.4-10.2) L 07/07/18 10:17 Iron 16 ug/dL (49-181) L 07/01/18 07:46 TIBC 126 mcg/dL (250-450) L 07/01/18 07:46 % Saturation 12.70 % 07/01/18 07:46 Transferrin 98 mg/dl (180-329) L 07/01/18 07:46 Total Bilirubin 1.30 mg/dL (0.1-1.2) H 06/30/18 09:42 Direct Bilirubin 0.6 mg/dL (0-0.2) H 06/30/18 09:42 Indirect Bilirubin 0.7 mg/dL 06/30/18 09:42 AST 20 units/L (5-40) 06/30/18 09:42 ALT 33 units/L (7-56) 06/30/18 09:42 Alkaline Phosphatase 168 units/L (35-129) H 06/30/18 09:42 Total Protein 7.4 g/dL (6.3-8.2) 06/30/18 09:42 Albumin 2.7 g/dL (3.9-5) L 06/30/18 09:42 Albumin/Globulin Ratio 0.6 % 06/30/18 09:42 Lipase 34 units/L (13-60) 06/30/18 09:42 Vitamin B12 462.7 pg/mL (211-911) 07/01/18 07:46 RBC Folic Acid >1000 ng/mL (>280) 07/01/18 07:46 Urine Color [place] (Yellow) 06/30/18 Unknown Urine Turbidity Slightly-cloudy (Clear) 06/30/18 Unknown Urine pH 5.0 (5.0-7.0) 06/30/18 Unknown Ur Specific [place] 1.029 (1.003-1.030) 06/30/18 Unknown Urine Protein 100 mg/dl mg/dL (Negative) 06/30/18 Unknown Urine Glucose (UA) >=500 mg/dL (Negative) 06/30/18 Unknown Urine Ketones 20 mg/dL (Negative) 06/30/18 Unknown Urine Blood Neg (Negative) 06/30/18 Unknown Urine Nitrite Neg (Negative) 06/30/18 Unknown Urine Bilirubin Neg (Negative) 06/30/18 Unknown Urine Urobilinogen 4.0 mg/dL (<2.0) 06/30/18 Unknown Ur Leukocyte Esterase Neg (Negative) 06/30/18 Unknown Urine WBC (Auto) 6.0 /HPF (0.0-6.0) 06/30/18 Unknown Urine RBC (Auto) 9.0 /HPF (0.0-6.0) 06/30/18 Unknown U Epithel Cells (Auto) 1.0 /HPF (0-13.0) 06/30/18 Unknown Urine Mucus 2+ /HPF 06/30/18 Unknown Vancomycin Trough 13.3 ug/mL (5.0-20.0) 07/03/18 09:14 Nutrition/Malnutrition Assess - Dietary Evaluation Nutrition/Malnutrition Findings: Nutrition Notes Start: 07/01/18 13:35 Freq: Status: Active Protocol: Document 07/07/18 17:07 RM (Rec: 07/07/18 17:15 [id number]) Nutrition Notes Initial or Follow up Reassessment Current Diagnosis Diabetes Other Pertinent Diagnosis Intractible N/V, S/P R BKA Current Diet Consistent Carb Labs/Tests No recent labs Pertinent Medications Reviewed Height 6 ft 4 in Weight 100.9 kg [place] Body Weight (kg) 91.81 BMI 27.1 Subjective/Other Information Pt stated that he eats only 60 % of his meals d/t disliking the taste of the food. Percent of energy/protein needs met: 54%/47% Burn Absent Trauma Absent #2 Nutrition Diagnosis Malnutrition Diagnosis Progress(for reassessment Continues documentation) #1 Nutrition Diagnosis Inadequate energy intake As Evidenced by Signs and Symptoms pt meeting 54% of calorie and 47% of protein needs Diagnosis Progress(for reassessment Improved documentation) Is patient on ventilator? No Is Patient Ambulatory and/or Out of Bed No REE-([facility]-confined to bed) [phone] Calculation Used for Recommendations [facility] Additional Notes Pro needs: 1.2-1.5 g/kg BW ( 114-143g/day) Fluid needs: 1 ml/kcal Nutrition Intervention Change Diet Order: Continue current Add Supplement/Snack (indicate name/kcal Glucerna chocolate 1 daily /protein ) Provides kCal: 220 Provides Protein (gm) 10 Goal #1 Meet at least 75% of energy and protein needs via PO and ONS intakes Anticipated Discharge Needs: Consistent CHO diet Follow-Up By: 07/09/18 Additional Comments Follow for PO and ONS intakes
[2018-07-08] MEDS: LANTUS SUB-Q SCH (22:45)
[2018-07-08] MEDS: LOVENOX SUB-Q SCH (22:45)
[2018-07-09 05:26] LABS: Hematocrit 21.2 % (35.5-45.6); Hemoglobin 7.1 gm/dl (11.8-15.2)
[2018-07-09] MEDS: ZOSYN/NS 4.5GM/100ML 4.5 GM/100 ML VIAL IV SCH (05:43)
[2018-07-09] MEDS: D5NS 1,000 ML IV SCH (05:44)
[2018-07-09] MEDS: HumaLOG SUB-Q SCH ×4 (07:30→22:49)
[2018-07-09] MEDS ORDERED: XYLOCAINE TOPICAL 4% TP ONE (09:01)
[2018-07-09] MEDS ORDERED: SILVER NITRATE TP ONE (09:07)
[2018-07-09] MEDS: VANCOMYCIN 1,500 MG in NACL 0.9% 500 ML 500 ML IV SCH ×2 (11:09→22:30)
[2018-07-09] MEDS: COREG PO SCH ×2 (11:09→22:36)
[2018-07-09] MEDS: PLAVIX PO SCH (11:09)
[2018-07-09] MEDS: MUCINEX ER PO SCH ×2 (11:09→22:58)
--- NOTE | 2018-07-09 11:09 | Gastroenterology Consultation ---
<CORTES CHAPA - Last Filed: 07/09/18 11:16> History of Present Illness - Reason for Consult Consult date: 07/09/18 N/V Requesting physician: IAD MOHAN - History of Present Illness Patient is a 62 y/o male with PMH of DM (uncontrolled), glaucoma, and neuropathy who presented to ED with c/o complaining of diffuse abdominal pain, cramping in nature associated with nausea and vomiting. Upon admission, he was found to have a non-healing right foot ulcer and was admitted for cellulitis with sepsis and underwent a BKA on 07/04. GI has been consulted for N/V. This morning patient was sitting in bed finishing his breakfast (tolerated diet w/o difficulty) w/o acute distresss. Noted to be tearful and anxious due to recent amputation. Reports N/V is now improved and abd pain resolved. Admits to a decrease in appetite but denies fever, CP, SOB, dysphagia, odynophagia, signs of bleeding, or LGI symptoms. Believes he had an EGD approximately 1 year ago with negative results. Abd CT on admission was negative for any acute process. 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 Patient stated that he is not able to keep anything down for the last 3 days. He also has a right foot ulcer on great toe. Ct ABD IMPRESSION: No acute inflammatory process is identified. Borderline to mildly enlarged right iliac lymph nodes of uncertain clinical significance. These may be reactive in nature. A single appendectomy Past History Past Medical History: diabetes, other (glacoma) Past Surgical History: appendectomy, Other (cataracts) Social history: denies: smoking (denies h/o tob use) Family history: no significant family history Medications and Allergies Allergies Allergy/AdvReac Type Severity Reaction Status Date / Time No Known Allergies Allergy Unverified 11/07/16 12:54 Home Medications Medication Instructions Recorded Confirmed Last Taken Type Metformin HCl [Glucophage] 850 mg PO BID 11/07/16 06/30/18 06/29/18 History glipiZIDE [Glucotrol] 5 mg PO BID 11/07/16 06/30/18 06/29/18 History Active Meds: Active Medications Acetaminophen (Tylenol) 650 mg PO Q4H PRN PRN Reason: Pain, Mild (1-3) Last Admin: 07/05/18 02:57 Dose: 650 mg Documented by: Carvedilol (Coreg) 3.125 mg PO BID [facility] Last Admin: 07/08/18 22:47 Dose: 3.125 mg Documented by: Clopidogrel Bisulfate (Plavix) 75 mg PO QDAY [facility] Last Admin: 07/08/18 11:09 Dose: 75 mg Documented by: Dextrose (D50w (25gm) Syringe) 100 ml IV PRN PRN PRN Reason: Hypoglycemia Last Admin: 07/04/18 12:50 Dose: 100 ml Documented by: Enoxaparin Sodium (Lovenox) 40 mg SUB-Q QDAY@2200 [facility] Last Admin: 07/08/18 22:45 Dose: 40 mg Documented by: Guaifenesin (Mucinex Er) 600 mg PO BID [facility] Last Admin: 07/08/18 22:45 Dose: 600 mg Documented by: Vancomycin HCl 1,500 mg/ (Sodium Chloride) 530 mls @ 333.333 mls/hr IV Q12HR [facility] Last Admin: 07/08/18 22:58 Dose: 333.333 mls/hr Documented by: Piperacillin Sod/Tazobactam Sod (Zosyn/Ns 4.5gm/100ml) 4.5 gm in 100 mls @ 200 mls/hr IV Q8HR [facility] Last Admin: 07/09/18 05:43 Dose: 200 mls/hr Documented by: Dextrose/Sodium Chloride (D5ns) 1,000 mls @ 75 mls/hr IV DIRECT [facility] Last Admin: 07/09/18 05:44 Dose: 75 mls/hr Documented by: Insulin Glargine (Lantus) 25 units SUB-Q QHS [facility] Last Admin: 07/08/18 22:45 Dose: 25 units Documented by: Insulin Human Lispro (Humalog) 0 unit SUB-Q ACHS [facility]; Protocol Last Admin: 07/09/18 07:30 Dose: Not Given Documented by: Morphine Sulfate (Morphine) 4 mg IV Q3H PRN PRN Reason: Pain , Severe (7-10) Last Admin: 07/07/18 11:48 Dose: 4 mg Documented by: Oxycodone/Acetaminophen (Percocet 5/325) 1 tab PO Q6H PRN PRN Reason: Pain, Moderate (4-6) Oxycodone/Acetaminophen (Percocet 5/325) 2 tab PO Q4H PRN PRN Reason: Pain, Moderate (4-6) Sodium Hypochlorite (Dakin's Half Strength) 1 applic TP BID [facility] Last Admin: 07/08/18 22:46 Dose: Not Given Documented by: Exam - Constitutional Vital Signs: Temp Pulse Resp BP Pulse Ox 98.9 F 69 20 144/73 98 07/09/18 05:26 07/09/18 05:26 07/09/18 06:00 07/09/18 05:26 07/09/18 05:26 - Labs CBC & Chem 7: 07/09/18 04:45 07/07/18 10:17 Lab Results: Laboratory Results - last 24 hr 07/08/18 07/08/18 07/08/18 11:20 16:06 21:13 Hgb Hct POC Glucose 149 H 108 H 126 H 07/09/18 07/09/18 04:45 07:39 Hgb 7.1 L Hct 21.2 L POC Glucose 88 Assessment and Plan 1.N/V 2.DM (uncontrolled) -abd CT w/o acute process -EGD approximatley 1 year ago with negative results per pt report -etiology-likely multifactorial (uncontrolled DM and possible psych component with recent BKA-anxious and tearful upon exam) -clinically, patient is stable with N/V now improved.Tolerating diet. No abd pain. -no plan for scope at this time -consider trial of Ativan -optimize glycemic control -small frequent meals -daily PPI -continue antiemetics and supportive care -no further GI recommendations at this time -will follow at a distance 3.Diabetic right foot with ulcer-s/p BKA 07/04 4.cellulitis of right foot with sepsis 5.anemia 6.HTN <MIRELLA NUGENT Zhanna - Last Filed: 07/09/18 16:05> Medications and Allergies Active Meds: Active Medications Acetaminophen (Tylenol) 650 mg PO Q4H PRN PRN Reason: Pain, Mild (1-3) Last Admin: 07/05/18 02:57 Dose: 650 mg Documented by: Carvedilol (Coreg) 3.125 mg PO BID [facility] Last Admin: 07/09/18 11:09 Dose: 3.125 mg Documented by: Clopidogrel Bisulfate (Plavix) 75 mg PO QDAY [facility] Last Admin: 07/09/18 11:09 Dose: 75 mg Documented by: Dextrose (D50w (25gm) Syringe) 100 ml IV PRN PRN PRN Reason: Hypoglycemia Last Admin: 07/04/18 12:50 Dose: 100 ml Documented by: Enoxaparin Sodium (Lovenox) 40 mg SUB-Q QDAY@2200 [facility] Last Admin: 07/08/18 22:45 Dose: 40 mg Documented by: Guaifenesin (Mucinex Er) 600 mg PO BID [facility] Last Admin: 07/09/18 11:09 Dose: 600 mg Documented by: Vancomycin HCl 1,500 mg/ (Sodium Chloride) 530 mls @ 333.333 mls/hr IV Q12HR [facility] Last Admin: 07/09/18 11:09 Dose: 333.333 mls/hr Documented by: Dextrose/Sodium Chloride (D5ns) 1,000 mls @ 75 mls/hr IV DIRECT [facility] Last Admin: 07/09/18 05:44 Dose: 75 mls/hr Documented by: Insulin Glargine (Lantus) 25 units SUB-Q QHS [facility] Last Admin: 07/08/18 22:45 Dose: 25 units Documented by: Insulin Human Lispro (Humalog) 0 unit SUB-Q ACHS [facility]; Protocol Last Admin: 07/09/18 11:30 Dose: Not Given Documented by: Lorazepam (Ativan) 0.5 mg PO BID [facility] Last Admin: 07/09/18 13:06 Dose: 0.5 mg Documented by: Metoclopramide HCl (Reglan) 10 mg IV Q6H PRN PRN Reason: Nausea And Vomiting Last Admin: 07/09/18 13:05 Dose: 10 mg Documented by: Morphine Sulfate (Morphine) 4 mg IV Q3H PRN PRN Reason: Pain , Severe (7-10) Last Admin: 07/07/18 11:48 Dose: 4 mg Documented by: Oxycodone/Acetaminophen (Percocet 5/325) 1 tab PO Q6H PRN PRN Reason: Pain, Moderate (4-6) Oxycodone/Acetaminophen (Percocet 5/325) 2 tab PO Q4H PRN PRN Reason: Pain, Moderate (4-6) Pantoprazole Sodium (Protonix) 40 mg PO QDAY [facility] Last Admin: 07/09/18 13:06 Dose: 40 mg Documented by: Sodium Hypochlorite (Dakin's Half Strength) 1 applic TP BID [facility] Last Admin: 07/09/18 12:52 Dose: Not Given Documented by: Exam - Constitutional Vital Signs: Temp Pulse Resp BP Pulse Ox 98.0 F 71 20 132/68 97 07/09/18 11:12 07/09/18 11:12 07/09/18 11:12 07/09/18 11:12 07/09/18 11:12 - Labs CBC & Chem 7: 07/09/18 04:45 07/07/18 10:17 Lab Results: Laboratory Results - last 24 hr 07/08/18 07/08/18 07/09/18 16:06 21:13 04:45 Hgb 7.1 L Hct 21.2 L POC Glucose 108 H 126 H 07/09/18 07/09/18 07:39 11:13 Hgb Hct POC Glucose 88 139 H Assessment and Plan Pt seen and examined. Agree with note above. + nausea without emesis today; minimal po intake. suspect multifactorial etiology as above. unlikely GOO; supportive care as above and will monitor.
[2018-07-09] MEDS ORDERED: REGLAN IV PRN (11:50)
--- NOTE | 2018-07-09 12:21 | Procedure Note ---
Date of procedure: 07/09/18 Pre-op diagnosis: 1) Stage 4 sacral pressure ulcer 2) Stage 3 left hip ulcers Post-op diagnosis: same Procedure: Debridement of necrotic muscle and fascia from sacral and left hip pressure ulcers Description of procedure: Pt was administered IV morphine. He was positioned in his bed, right side down. 4% viscous lidocaine was applied to his left hip and sacral pressure ulcers. After approximately 20 minutes, necrotic muscle and fascia were surgically, excisionally debrided from the sacral and left hip pressure ulcers. This was accomplished with forceps, scissors and a #10 blade. Bleeding was minimal and was controlled with silver nitrate and pressure. Procedure was well tolerated. Wounds were dressed by Snow, the Wound Care nurse. Final wound measurements were as follows: Sacrum: 13 X 13 X 1 cm Left hip: 19 X 7 X 0.6 cm Anesthesia: other (Topical 4% Lidocaine) Surgeon: LILY FENTON Estimated blood loss: minimal Pathology: none Specimen disposition: discarded Condition: stable Disposition: no change
[2018-07-09] MEDS: DAKIN'S HALF STRENGTH TP SCH ×2 (12:52→22:57)
[2018-07-09] MEDS: ATIVAN PO SCH ×2 (13:06→22:32)
[2018-07-09] MEDS: PROTONIX PO SCH (13:06)
--- NOTE | 2018-07-09 14:46 | Progress Note ---
Assessment and Plan Assessment and plan: Patient is 62 year old man with a history of DM type 2 who presented to the ER complaining of diffuse abdominal pain, cramping in nature associated with nausea and vomiting. Patient stated that he is not able to keep anything down for the last 3 days. He also has a right foot ulcer on great toe. /Intractable nausea without vomiting: add reglan, and ativan, GI evaluated /Diabetic right foot with ulcer/ Abscess of tendon of right foot s/p Right BKA, Pt's arterial duplex showed monophasic flow to his right foot. In light of several week h/o non-healing wounds, s/p arteriogram with re-vascularization, Consulted [facility] dr Dobson, s/p BKA amputation 07/04, PT/OT consult, needs rehab on d/c, CM consulted /Stage 4 sacral pressure ulcer and Stage 3 left hip ulcers: Excisional Debridement of necrotic muscle and fascia from sacral and left hip pressure ulcers on 07/09/18 /Intractable nausea and vomiting, IV Fluids and IV Zofran as needed, Possible sec to uncontrolled DM with gastroparesis and Metformin, Metformin on Hold /T2DM (type 2 diabetes mellitus), Cont High dose sliding scale coverage, A1c 7.3, consistent carb diet /Cellulitis of right foot with sepsis, IV abx for now /Anemia likley from chronic disease; low iron with normal % of saturation and low binding capacity /HTN, start on coreg /Hypoglycemia, resolved, likely due to NPO status, s/p D50 and D5 Ns / DVT prophylaxis, On Lovenox Disposition: continue inpatient care, awaiting clearance from inpatient Rehab in [place] History Interval history: Patient was seen and examined. Follow-up on current diagnosis of foot infection. Still has nausea. Overnight uneventful. Patient denies any chest pain, shortness breath,or severe headaches. Imaging, nursing note, chart, labs and old chart reviewed. Discussed with patient. Hospitalist Physical - Physical exam Narrative exam: Gen: WDWN, NAD, Awake, Alert, Orientated HEENT: NCAT, EOMI, PERRL, OP Clear Neck: supple, no adenopathy, no thyromegaly, no JVD CVS/Heart: RRR, normal S1S2, pulses present bilaterally Chest/Lungs: CTA B, Symmetrical chest expansion, good air entry bilaterally GI/Abdomen: soft, NTND, good bowel sounds, no guarding or rebound /Bladder: no suprapubic tenderness, no CVA or paraspinal tenderness Extermity/Skin: right bka c/d/i, and on Surgical exam: Sacrum: 13 X 13 X 1 cm, Left hip: 19 X 7 X 0.6 cm Peripheral Pulses: within normal limits MSK: FROM x 4 Neuro: CN 2-12 grossly intact, no new focal deficits Psych: anxious tearful, sad about his health, denies SI/HI - Constitutional Vitals: Temp Pulse Resp BP Pulse Ox 98.0 F 71 20 132/68 97 07/09/18 11:12 07/09/18 11:12 07/09/18 11:12 07/09/18 11:12 07/09/18 11:12 General appearance: Present: no acute distress Results - Labs CBC & Chem 7: 07/09/18 04:45 07/07/18 10:17 Labs: Laboratory Last Values WBC 12.3 K/mm3 (4.5-11.0) H 07/07/18 10:17 RBC 2.76 M/mm3 (3.65-5.03) L 07/07/18 10:17 Hgb 7.1 gm/dl (11.8-15.2) L 07/09/18 04:45 Hct 21.2 % (35.5-45.6) L 07/09/18 04:45 MCV 81 fl (84-94) L 07/07/18 10:17 MCH 27 pg (28-32) L 07/07/18 10:17 MCHC 33 % (32-34) 07/07/18 10:17 RDW 15.9 % (13.2-15.2) H 07/07/18 10:17 Plt Count 428 K/mm3 (140-440) 07/07/18 10:17 Lymph % (Auto) Plasma Processing Technician 07/04/18 06:38 [place] % (Auto) Plasma Processing Technician 07/04/18 06:38 Eos % (Auto) Plasma Processing Technician 07/04/18 06:38 Baso % (Auto) Plasma Processing Technician 07/04/18 06:38 Lymph # Plasma Processing Technician 07/04/18 06:38 [place] # Plasma Processing Technician 07/04/18 06:38 Eos # Plasma Processing Technician 07/04/18 06:38 Baso # Plasma Processing Technician 07/04/18 06:38 Add Manual Diff Complete 07/05/18 06:10 Total Counted 100 07/05/18 06:10 Seg Neutrophils % Plasma Processing Technician 07/04/18 06:38 Seg Neuts % (Manual) 79.0 % (40.0-70.0) H 07/05/18 06:10 Band Neutrophils % 6.0 % 07/05/18 06:10 Lymphocytes % (Manual) 7.0 % (13.4-35.0) L 07/05/18 06:10 Reactive Lymphs % (Man) 0 % 07/05/18 06:10 Monocytes % (Manual) 5.0 % (0.0-7.3) 07/05/18 06:10 Eosinophils % (Manual) 3.0 % (0.0-4.3) 07/05/18 06:10 Basophils % (Manual) 0 % (0.0-1.8) 07/05/18 06:10 Metamyelocytes % 0 % 07/05/18 06:10 Myelocytes % 0 % 07/05/18 06:10 Promyelocytes % 0 % 07/05/18 06:10 Blast Cells % 0 % 07/05/18 06:10 Nucleated RBC % Not Reportable 07/05/18 06:10 Seg Neutrophils # Plasma Processing Technician 07/04/18 06:38 Seg Neutrophils # Man 11.1 K/mm3 (1.8-7.7) H 07/05/18 06:10 Band Neutrophils # 0.8 K/mm3 07/05/18 06:10 Lymphocytes # (Manual) 1.0 K/mm3 (1.2-5.4) L 07/05/18 06:10 Abs React Lymphs (Man) 0.0 K/mm3 07/05/18 06:10 Monocytes # (Manual) 0.7 K/mm3 (0.0-0.8) 07/05/18 06:10 Eosinophils # (Manual) 0.4 K/mm3 (0.0-0.4) 07/05/18 06:10 Basophils # (Manual) 0.0 K/mm3 (0.0-0.1) 07/05/18 06:10 Metamyelocytes # 0.0 K/mm3 07/05/18 06:10 Myelocytes # 0.0 K/mm3 07/05/18 06:10 Promyelocytes # 0.0 K/mm3 07/05/18 06:10 Blast Cells # 0.0 K/mm3 07/05/18 06:10 WBC Morphology Not Reportable 07/05/18 06:10 Hypersegmented Neuts Not Reportable 07/05/18 06:10 Hyposegmented Neuts Not Reportable 07/05/18 06:10 Hypogranular Neuts Not Reportable 07/05/18 06:10 Smudge Cells Not Reportable 07/05/18 06:10 Toxic Granulation Not Reportable 07/05/18 06:10 Toxic Vacuolation Not Reportable 07/05/18 06:10 Dohle Bodies Not Reportable 07/05/18 06:10 Pelger-Huet Anomaly Not Reportable 07/05/18 06:10 Marcelo Rods Not Reportable 07/05/18 06:10 Platelet Estimate Appears normal 07/05/18 06:10 Clumped Platelets Not Reportable 07/05/18 06:10 Plt Clumps, EDTA Not Reportable 07/05/18 06:10 Large Platelets Not Reportable 07/05/18 06:10 Giant Platelets Not Reportable 07/05/18 06:10 Platelet Satelliting Not Reportable 07/05/18 06:10 Plt Morphology Comment Not Reportable 07/05/18 06:10 RBC Morphology Not Reportable 07/05/18 06:10 Dimorphic RBCs Not Reportable 07/05/18 06:10 Polychromasia Not Reportable 07/05/18 06:10 Hypochromasia 1+ 07/05/18 06:10 Poikilocytosis Not Reportable 07/05/18 06:10 Anisocytosis 1+ 07/05/18 06:10 Microcytosis Not Reportable 07/05/18 06:10 Macrocytosis Not Reportable 07/05/18 06:10 Spherocytes Not Reportable 07/05/18 06:10 Pappenheimer Bodies Not Reportable 07/05/18 06:10 Sickle Cells Not Reportable 07/05/18 06:10 Target Cells Few 07/05/18 06:10 Tear Drop Cells Not Reportable 07/05/18 06:10 Ovalocytes Not Reportable 07/05/18 06:10 Helmet Cells Not Reportable 07/05/18 06:10 [place] Bodies Not Reportable 07/05/18 06:10 [place] Rings Not Reportable 07/05/18 06:10 [place] Cells Not Reportable 07/05/18 06:10 Bite Cells Not Reportable 07/05/18 06:10 Crenated Cell Not Reportable 07/05/18 06:10 Elliptocytes Not Reportable 07/05/18 06:10 Acanthocytes (Spur) Not Reportable 07/05/18 06:10 Rouleaux Not Reportable 07/05/18 06:10 Hemoglobin C Crystals Not Reportable 07/05/18 06:10 Schistocytes Not Reportable 07/05/18 06:10 Malaria parasites Not Reportable 07/05/18 06:10 Mumtaz Bodies Not Reportable 07/05/18 06:10 Hem Pathologist Commnt No 07/05/18 06:10 Sodium 141 mmol/L (137-145) 07/07/18 10:17 Potassium 3.7 mmol/L (3.6-5.0) 07/07/18 10:17 Chloride 105.8 mmol/L (98-107) 07/07/18 10:17 Carbon Dioxide 23 mmol/L (22-30) 07/07/18 10:17 Anion Gap 16 mmol/L 07/07/18 10:17 BUN 6 mg/dL (9-20) L 07/07/18 10:17 Creatinine 0.9 mg/dL (0.8-1.5) 07/07/18 10:17 Estimated GFR > 60 ml/min 07/07/18 10:17 BUN/Creatinine Ratio 7 % 07/07/18 10:17 Glucose 162 mg/dL (75-100) H 07/07/18 10:17 POC Glucose 139 (70-105) H 07/09/18 11:13 Hemoglobin A1c 7.3 % (4-6) H 07/03/18 14:08 Calcium 7.3 mg/dL (8.4-10.2) L 07/07/18 10:17 Iron 16 ug/dL (49-181) L 07/01/18 07:46 TIBC 126 mcg/dL (250-450) L 07/01/18 07:46 % Saturation 12.70 % 07/01/18 07:46 Transferrin 98 mg/dl (180-329) L 07/01/18 07:46 Total Bilirubin 1.30 mg/dL (0.1-1.2) H 06/30/18 09:42 Direct Bilirubin 0.6 mg/dL (0-0.2) H 06/30/18 09:42 Indirect Bilirubin 0.7 mg/dL 06/30/18 09:42 AST 20 units/L (5-40) 06/30/18 09:42 ALT 33 units/L (7-56) 06/30/18 09:42 Alkaline Phosphatase 168 units/L (35-129) H 06/30/18 09:42 Total Protein 7.4 g/dL (6.3-8.2) 06/30/18 09:42 Albumin 2.7 g/dL (3.9-5) L 06/30/18 09:42 Albumin/Globulin Ratio 0.6 % 06/30/18 09:42 Lipase 34 units/L (13-60) 06/30/18 09:42 Vitamin B12 462.7 pg/mL (211-911) 07/01/18 07:46 RBC Folic Acid >1000 ng/mL (>280) 07/01/18 07:46 Urine Color [place] (Yellow) 06/30/18 Unknown Urine Turbidity Slightly-cloudy (Clear) 06/30/18 Unknown Urine pH 5.0 (5.0-7.0) 06/30/18 Unknown Ur Specific [place] 1.029 (1.003-1.030) 06/30/18 Unknown Urine Protein 100 mg/dl mg/dL (Negative) 06/30/18 Unknown Urine Glucose (UA) >=500 mg/dL (Negative) 06/30/18 Unknown Urine Ketones 20 mg/dL (Negative) 06/30/18 Unknown Urine Blood Neg (Negative) 06/30/18 Unknown Urine Nitrite Neg (Negative) 06/30/18 Unknown Urine Bilirubin Neg (Negative) 06/30/18 Unknown Urine Urobilinogen 4.0 mg/dL (<2.0) 06/30/18 Unknown Ur Leukocyte Esterase Neg (Negative) 06/30/18 Unknown Urine WBC (Auto) 6.0 /HPF (0.0-6.0) 06/30/18 Unknown Urine RBC (Auto) 9.0 /HPF (0.0-6.0) 06/30/18 Unknown U Epithel Cells (Auto) 1.0 /HPF (0-13.0) 06/30/18 Unknown Urine Mucus 2+ /HPF 06/30/18 Unknown Vancomycin Trough 13.3 ug/mL (5.0-20.0) 07/03/18 09:14 Nutrition/Malnutrition Assess - Dietary Evaluation Nutrition/Malnutrition Findings: Nutrition Notes Start: 07/01/18 13:35 Freq: Status: Active Protocol: Document 07/09/18 13:28 RM (Rec: 07/09/18 13:36 RM [id number]) Nutrition Notes Initial or Follow up Reassessment Current Diagnosis Diabetes Other Pertinent Diagnosis Intractible N/V, S/P R BKA Current Diet GI soft Labs/Tests Reviewed Pertinent Medications Reviewed Height 6 ft 4 in Weight 105.2 kg [place] Body Weight (kg) 91.81 BMI 28.2 Subjective/Other Information Pt stated that he is eating 50 % of his meals and is drinking most of the Glucerna. Stated he is getting tired of the chocolate flavor and would like to switch to strawberry. Percent of energy/protein needs met: 50%/42% Burn Absent Trauma Absent #2 Nutrition Diagnosis Malnutrition Diagnosis Progress(for reassessment Continues documentation) #1 Nutrition Diagnosis Inadequate energy intake Diagnosis Progress(for reassessment Continues documentation) Is patient on ventilator? No Is Patient Ambulatory and/or Out of Bed No REE-([facility] [place]-confined to bed) 2354.796 Calculation Used for Recommendations [facility] Additional Notes Pro needs: 1.2-1.5 g/kg BW ( 114-143g/day) Fluid needs: 1 ml/kcal Nutrition Intervention Change Diet Order: Add Consistent CHO modification Add Supplement/Snack (indicate name/kcal Glucerna strawberry 1 daily /protein ) Provides kCal: 220 Provides Protein (gm) 10 Goal #1 Meet at least 75% of energy and protein needs via PO and ONS intakes Anticipated Discharge Needs: Consistent CHO diet Follow-Up By: 07/11/18 Additional Comments Follow for PO and ONS intakes
[2018-07-09] MEDS: TYLENOL PO PRN (18:37)
[2018-07-09] MEDS: LOVENOX SUB-Q SCH ×2 (22:36→22:45)
[2018-07-09] MEDS: LANTUS SUB-Q SCH (22:36)
[2018-07-10] MEDS: D5NS 1,000 ML IV SCH (03:52)
[2018-07-10] MEDS: HumaLOG SUB-Q SCH ×4 (10:46→21:46)
[2018-07-10] MEDS: ATIVAN PO SCH (10:48)
[2018-07-10] MEDS: COREG PO SCH ×2 (10:49→21:23)
[2018-07-10] MEDS: PLAVIX PO SCH (10:50)
[2018-07-10] MEDS: PROTONIX PO SCH (10:50)
[2018-07-10] MEDS: VANCOMYCIN 1,500 MG in NACL 0.9% 500 ML 500 ML IV SCH (10:59)
[2018-07-10] MEDS: MUCINEX ER PO SCH ×2 (10:59→21:23)
[2018-07-10] MEDS: DAKIN'S HALF STRENGTH TP SCH ×2 (11:06→22:00)
--- NOTE | 2018-07-10 11:42 | Gastroenterology Progress Note ---
<CORTES CHAPA - Last Filed: 07/10/18 11:43> Assessment and Plan 1.N/V 2.DM (uncontrolled) -abd CT w/o acute process -EGD approximatley 1 year ago with negative results per pt report -etiology-likely multifactorial (uncontrolled DM and possible psych component with recent BKA-anxious and tearful upon exam) -clinically, patient is stable with N/V now resolved.Tolerating diet. No abd pain. -no plan for scope -continue PPI and reglan (patient refusing Ativan) -optimize glycemic control -small frequent meals -limit narcotics -continue supportive care -no further recommendation at this time, patient okay to be d/c per GI sta ndpoint -will sign off, please call if needed 3.Diabetic right foot with ulcer-s/p BKA 07/04 4.cellulitis of right foot with sepsis 5.anemia 6.HTN Subjective Date of service: 07/10/18 Principal diagnosis: N/V Interval history: Patient sitting up in bed w/o acute distress. States he is eating better/tolerating diet w/o difficulty. No N/V or abd pain Objective - Constitutional Vitals: Temp Pulse Resp BP Pulse Ox 98.9 F 68 20 164/85 97 07/10/18 05:54 07/10/18 05:54 07/10/18 05:54 07/10/18 10:49 07/10/18 05:54 General appearance: no acute distress - Respiratory Respiratory: bilateral: CTA - Cardiovascular Rhythm: regular Heart Sounds: Present: S1 & S2 - Gastrointestinal General gastrointestinal: Present: soft, non-tender, non-distended, normal bowel sounds - Labs CBC & Chem 7: 07/09/18 04:45 07/07/18 10:17 Labs: Laboratory Results - last 24 hr 07/09/18 07/09/18 07/10/18 16:28 22:21 07:44 POC Glucose 159 H 157 H 100 07/10/18 11:09 POC Glucose 130 H <MIRELLA NUGENT - Last Filed: 07/10/18 19:08> Assessment and Plan Pt's nausea is improved. Please call as needed. Objective - Constitutional Vitals: Temp Pulse Resp BP Pulse Ox 98.4 F 74 20 147/71 96 07/10/18 11:08 07/10/18 11:08 07/10/18 11:08 07/10/18 11:08 07/10/18 11:08 - Labs CBC & Chem 7: 07/09/18 04:45 07/07/18 10:17 Labs: Laboratory Results - last 24 hr 07/09/18 07/10/18 07/10/18 22:21 07:44 11:09 POC Glucose 157 H 100 130 H 07/10/18 16:21 POC Glucose 208 H
--- NOTE | 2018-07-10 14:08 | Progress Note ---
Assessment and Plan Assessment and plan: Patient is 62 year old man with a history of DM type 2 who presented to the ER complaining of diffuse abdominal pain, cramping in nature associated with nausea and vomiting. Patient stated that he is not able to keep anything down for the last 3 days. He also has a right foot ulcer on great toe. /Intractable nausea without vomiting: add reglan, and ativan, GI evaluated /Diabetic right foot with ulcer/ Abscess of tendon of right foot s/p Right BKA, Pt's arterial duplex showed monophasic flow to his right foot. In light of several week h/o non-healing wounds, s/p arteriogram with re-vascularization, Consulted [facility] dr Dobson, s/p BKA amputation 07/04, PT/OT consult, needs rehab on d/c, CM consulted /Stage 4 sacral pressure ulcer and Stage 3 left hip ulcers: Excisional Debridement of necrotic muscle and fascia from sacral and left hip pressure ulcers on 07/09/18 /Intractable nausea and vomiting, IV Fluids and IV Zofran as needed, Possible sec to uncontrolled DM with gastroparesis and Metformin, Metformin on Hold /T2DM (type 2 diabetes mellitus), Cont High dose sliding scale coverage, A1c 7.3, consistent carb diet /Cellulitis of right foot with sepsis, IV abx for now /Anemia likley from chronic disease; low iron with normal % of saturation and low binding capacity /HTN, start on coreg /Hypoglycemia, resolved, likely due to NPO status, s/p D50 and D5 Ns / DVT prophylaxis, On Lovenox Disposition: continue inpatient care, awaiting clearance from inpatient Rehab in [place] History Interval history: Patient was seen and examined. Follow-up on current diagnosis of foot infection. Still has nausea. Overnight uneventful. Patient denies any chest pain, shortness breath,or severe headaches. Imaging, nursing note, chart, labs and old chart reviewed. Discussed with patient. Hospitalist Physical - Physical exam Narrative exam: Gen: WDWN, NAD, Awake, Alert, Orientated HEENT: NCAT, EOMI, PERRL, OP Clear Neck: supple, no adenopathy, no thyromegaly, no JVD CVS/Heart: RRR, normal S1S2, pulses present bilaterally Chest/Lungs: CTA B, Symmetrical chest expansion, good air entry bilaterally GI/Abdomen: soft, NTND, good bowel sounds, no guarding or rebound /Bladder: no suprapubic tenderness, no CVA or paraspinal tenderness Extermity/Skin: right bka c/d/i, and on Surgical exam: Sacrum: 13 X 13 X 1 cm, Left hip: 19 X 7 X 0.6 cm Peripheral Pulses: within normal limits MSK: FROM x 4 Neuro: CN 2-12 grossly intact, no new focal deficits Psych: anxious tearful, sad about his health, denies SI/HI - Constitutional Vitals: Temp Pulse Resp BP Pulse Ox 98.4 F 74 20 147/71 96 07/10/18 11:08 07/10/18 11:08 07/10/18 11:08 07/10/18 11:08 07/10/18 11:08 General appearance: Present: no acute distress Results - Labs CBC & Chem 7: 07/09/18 04:45 07/07/18 10:17 Labs: Laboratory Last Values WBC 12.3 K/mm3 (4.5-11.0) H 07/07/18 10:17 RBC 2.76 M/mm3 (3.65-5.03) L 07/07/18 10:17 Hgb 7.1 gm/dl (11.8-15.2) L 07/09/18 04:45 Hct 21.2 % (35.5-45.6) L 07/09/18 04:45 MCV 81 fl (84-94) L 07/07/18 10:17 MCH 27 pg (28-32) L 07/07/18 10:17 MCHC 33 % (32-34) 07/07/18 10:17 RDW 15.9 % (13.2-15.2) H 07/07/18 10:17 Plt Count 428 K/mm3 (140-440) 07/07/18 10:17 Lymph % (Auto) Admission Discharge Rn 07/04/18 06:38 Gaines % (Auto) Admission Discharge Rn 07/04/18 06:38 Eos % (Auto) Admission Discharge Rn 07/04/18 06:38 Baso % (Auto) Admission Discharge Rn 07/04/18 06:38 Lymph # Admission Discharge Rn 07/04/18 06:38 Gaines # Admission Discharge Rn 07/04/18 06:38 Eos # Admission Discharge Rn 07/04/18 06:38 Baso # Admission Discharge Rn 07/04/18 06:38 Add Manual Diff Complete 07/05/18 06:10 Total Counted 100 07/05/18 06:10 Seg Neutrophils % Admission Discharge Rn 07/04/18 06:38 Seg Neuts % (Manual) 79.0 % (40.0-70.0) H 07/05/18 06:10 Band Neutrophils % 6.0 % 07/05/18 06:10 Lymphocytes % (Manual) 7.0 % (13.4-35.0) L 07/05/18 06:10 Reactive Lymphs % (Man) 0 % 07/05/18 06:10 Monocytes % (Manual) 5.0 % (0.0-7.3) 07/05/18 06:10 Eosinophils % (Manual) 3.0 % (0.0-4.3) 07/05/18 06:10 Basophils % (Manual) 0 % (0.0-1.8) 07/05/18 06:10 Metamyelocytes % 0 % 07/05/18 06:10 Myelocytes % 0 % 07/05/18 06:10 Promyelocytes % 0 % 07/05/18 06:10 Blast Cells % 0 % 07/05/18 06:10 Nucleated RBC % Not Reportable 07/05/18 06:10 Seg Neutrophils # Admission Discharge Rn 07/04/18 06:38 Seg Neutrophils # Man 11.1 K/mm3 (1.8-7.7) H 07/05/18 06:10 Band Neutrophils # 0.8 K/mm3 07/05/18 06:10 Lymphocytes # (Manual) 1.0 K/mm3 (1.2-5.4) L 07/05/18 06:10 Abs React Lymphs (Man) 0.0 K/mm3 07/05/18 06:10 Monocytes # (Manual) 0.7 K/mm3 (0.0-0.8) 07/05/18 06:10 Eosinophils # (Manual) 0.4 K/mm3 (0.0-0.4) 07/05/18 06:10 Basophils # (Manual) 0.0 K/mm3 (0.0-0.1) 07/05/18 06:10 Metamyelocytes # 0.0 K/mm3 07/05/18 06:10 Myelocytes # 0.0 K/mm3 07/05/18 06:10 Promyelocytes # 0.0 K/mm3 07/05/18 06:10 Blast Cells # 0.0 K/mm3 07/05/18 06:10 WBC Morphology Not Reportable 07/05/18 06:10 Hypersegmented Neuts Not Reportable 07/05/18 06:10 Hyposegmented Neuts Not Reportable 07/05/18 06:10 Hypogranular Neuts Not Reportable 07/05/18 06:10 Smudge Cells Not Reportable 07/05/18 06:10 Toxic Granulation Not Reportable 07/05/18 06:10 Toxic Vacuolation Not Reportable 07/05/18 06:10 Dohle Bodies Not Reportable 07/05/18 06:10 Pelger-Huet Anomaly Not Reportable 07/05/18 06:10 Marcelo Rods Not Reportable 07/05/18 06:10 Platelet Estimate Appears normal 07/05/18 06:10 Clumped Platelets Not Reportable 07/05/18 06:10 Plt Clumps, EDTA Not Reportable 07/05/18 06:10 Large Platelets Not Reportable 07/05/18 06:10 Giant Platelets Not Reportable 07/05/18 06:10 Platelet Satelliting Not Reportable 07/05/18 06:10 Plt Morphology Comment Not Reportable 07/05/18 06:10 RBC Morphology Not Reportable 07/05/18 06:10 Dimorphic RBCs Not Reportable 07/05/18 06:10 Polychromasia Not Reportable 07/05/18 06:10 Hypochromasia 1+ 07/05/18 06:10 Poikilocytosis Not Reportable 07/05/18 06:10 Anisocytosis 1+ 07/05/18 06:10 Microcytosis Not Reportable 07/05/18 06:10 Macrocytosis Not Reportable 07/05/18 06:10 Spherocytes Not Reportable 07/05/18 06:10 Pappenheimer Bodies Not Reportable 07/05/18 06:10 Sickle Cells Not Reportable 07/05/18 06:10 Target Cells Few 07/05/18 06:10 Tear Drop Cells Not Reportable 07/05/18 06:10 Ovalocytes Not Reportable 07/05/18 06:10 Helmet Cells Not Reportable 07/05/18 06:10 Hensley-Shields Bodies Not Reportable 07/05/18 06:10 [place] Rings Not Reportable 07/05/18 06:10 [place] Cells Not Reportable 07/05/18 06:10 Bite Cells Not Reportable 07/05/18 06:10 Crenated Cell Not Reportable 07/05/18 06:10 Elliptocytes Not Reportable 07/05/18 06:10 Acanthocytes (Spur) Not Reportable 07/05/18 06:10 Rouleaux Not Reportable 07/05/18 06:10 Hemoglobin C Crystals Not Reportable 07/05/18 06:10 Schistocytes Not Reportable 07/05/18 06:10 Malaria parasites Not Reportable 07/05/18 06:10 Mumtaz Bodies Not Reportable 07/05/18 06:10 Hem Pathologist Commnt No 07/05/18 06:10 Sodium 141 mmol/L (137-145) 07/07/18 10:17 Potassium 3.7 mmol/L (3.6-5.0) 07/07/18 10:17 Chloride 105.8 mmol/L (98-107) 07/07/18 10:17 Carbon Dioxide 23 mmol/L (22-30) 07/07/18 10:17 Anion Gap 16 mmol/L 07/07/18 10:17 BUN 6 mg/dL (9-20) L 07/07/18 10:17 Creatinine 0.9 mg/dL (0.8-1.5) 07/07/18 10:17 Estimated GFR > 60 ml/min 07/07/18 10:17 BUN/Creatinine Ratio 7 % 07/07/18 10:17 Glucose 162 mg/dL (75-100) H 07/07/18 10:17 POC Glucose 130 (70-105) H 07/10/18 11:09 Hemoglobin A1c 7.3 % (4-6) H 07/03/18 14:08 Calcium 7.3 mg/dL (8.4-10.2) L 07/07/18 10:17 Iron 16 ug/dL (49-181) L 07/01/18 07:46 TIBC 126 mcg/dL (250-450) L 07/01/18 07:46 % Saturation 12.70 % 07/01/18 07:46 Transferrin 98 mg/dl (180-329) L 07/01/18 07:46 Total Bilirubin 1.30 mg/dL (0.1-1.2) H 06/30/18 09:42 Direct Bilirubin 0.6 mg/dL (0-0.2) H 06/30/18 09:42 Indirect Bilirubin 0.7 mg/dL 06/30/18 09:42 AST 20 units/L (5-40) 06/30/18 09:42 ALT 33 units/L (7-56) 06/30/18 09:42 Alkaline Phosphatase 168 units/L (35-129) H 06/30/18 09:42 Total Protein 7.4 g/dL (6.3-8.2) 06/30/18 09:42 Albumin 2.7 g/dL (3.9-5) L 06/30/18 09:42 Albumin/Globulin Ratio 0.6 % 06/30/18 09:42 Lipase 34 units/L (13-60) 06/30/18 09:42 Vitamin B12 462.7 pg/mL (211-911) 07/01/18 07:46 RBC Folic Acid >1000 ng/mL (>280) 07/01/18 07:46 Urine Color [place] (Yellow) 06/30/18 Unknown Urine Turbidity Slightly-cloudy (Clear) 06/30/18 Unknown Urine pH 5.0 (5.0-7.0) 06/30/18 Unknown Ur Specific [place] 1.029 (1.003-1.030) 06/30/18 Unknown Urine Protein 100 mg/dl mg/dL (Negative) 06/30/18 Unknown Urine Glucose (UA) >=500 mg/dL (Negative) 06/30/18 Unknown Urine Ketones 20 mg/dL (Negative) 06/30/18 Unknown Urine Blood Neg (Negative) 06/30/18 Unknown Urine Nitrite Neg (Negative) 06/30/18 Unknown Urine Bilirubin Neg (Negative) 06/30/18 Unknown Urine Urobilinogen 4.0 mg/dL (<2.0) 06/30/18 Unknown Ur Leukocyte Esterase Neg (Negative) 06/30/18 Unknown Urine WBC (Auto) 6.0 /HPF (0.0-6.0) 06/30/18 Unknown Urine RBC (Auto) 9.0 /HPF (0.0-6.0) 06/30/18 Unknown U Epithel Cells (Auto) 1.0 /HPF (0-13.0) 06/30/18 Unknown Urine Mucus 2+ /HPF 06/30/18 Unknown Vancomycin Trough 13.3 ug/mL (5.0-20.0) 07/03/18 09:14 Nutrition/Malnutrition Assess - Dietary Evaluation Nutrition/Malnutrition Findings: Nutrition Notes Start: 07/01/18 13:35 Freq: Status: Active Protocol: Document 07/09/18 13:28 RM (Rec: 07/09/18 13:36 RM [id number]) Nutrition Notes Initial or Follow up Reassessment Current Diagnosis Diabetes Other Pertinent Diagnosis Intractible N/V, S/P R BKA Current Diet GI soft Labs/Tests Reviewed Pertinent Medications Reviewed Height 6 ft 4 in Weight 105.2 kg [place] Body Weight (kg) 91.81 BMI 28.2 Subjective/Other Information Pt stated that he is eating 50 % of his meals and is drinking most of the Glucerna. Stated he is getting tired of the chocolate flavor and would like to switch to strawberry. Percent of energy/protein needs met: 50%/42% Burn Absent Trauma Absent #2 Nutrition Diagnosis Malnutrition Diagnosis Progress(for reassessment Continues documentation) #1 Nutrition Diagnosis Inadequate energy intake Diagnosis Progress(for reassessment Continues documentation) Is patient on ventilator? No Is Patient Ambulatory and/or Out of Bed No REE-([facility]-confined to bed) 2354.796 Calculation Used for Recommendations [facility] Additional Notes Pro needs: 1.2-1.5 g/kg BW ( 114-143g/day) Fluid needs: 1 ml/kcal Nutrition Intervention Change Diet Order: Add Consistent CHO modification Add Supplement/Snack (indicate name/kcal Glucerna strawberry 1 daily /protein ) Provides kCal: 220 Provides Protein (gm) 10 Goal #1 Meet at least 75% of energy and protein needs via PO and ONS intakes Anticipated Discharge Needs: Consistent CHO diet Follow-Up By: 07/11/18 Additional Comments Follow for PO and ONS intakes
--- NOTE | 2018-07-10 14:29 | Discharge Summary ---
Providers - Providers Date of Admission: 06/30/18 12:23 Date of discharge: 07/11/18 Attending physician: IDA MOHAN 07/01/18 07:17 Consult to Wound/ET Nurse [CONS] Routine Reason For Exam: wound eval 07/01/18 07:22 Consult to Physician [CONS] Routine Comment: Consulting Provider: DONAVON RODRIGUEZ Physician Instructions: Reason For Exam: PVD,Foot ulcer 07/01/18 07:43 Consult to Dietitian/Nutrition [CONS] Routine Physician Instructions: Reason For Exam: malutrition Reason for Consult: Nutrition Recommendations Reason for Consult: Pt needs oral supplement 07/03/18 08:25 Consult to Physician [CONS] Routine Comment: Consulting Provider: LILY DOBSON Physician Instructions: Reason For Exam: right 1st digit amp 07/05/18 14:53 Physical Therapy Evaluation and Treat [CONS] Routine Comment: Reason For Exam: placement 07/08/18 14:31 Consult to Physician [CONS] Routine Comment: Consulting Provider: YONATHAN MEHTA Physician Instructions: Reason For Exam: Recurrent N/V [facility] Condition: Stable Hospital course: Patient is 62 year old man with a history of DM type 2 who presented to the ER complaining of diffuse abdominal pain, cramping in nature associated with nausea and vomiting. Patient stated that he is not able to keep anything down for the last 3 days. He also has a right foot ulcer on great toe. /Intractable nausea without vomiting: add reglan, and ativan, GI evaluated /Diabetic right foot with ulcer/ Abscess of tendon of right foot s/p Right BKA, Pt's arterial duplex showed monophasic flow to his right foot. In light of several week h/o non-healing wounds, s/p arteriogram with re-vascularization, Consulted [facility] dr Dobson, s/p BKA amputation 07/04, PT/OT consult, needs rehab on d/c, CM consulted /Intractable nausea and vomiting, IV Fluids and IV Zofran as needed, Possible sec to uncontrolled DM with gastroparesis and Metformin, Metformin on Hold /T2DM (type 2 diabetes mellitus), Cont High dose sliding scale coverage, A1c 7.3, consistent carb diet /Cellulitis of right foot with sepsis, IV abx for now /Anemia likley from chronic disease; low iron with normal % of saturation and low binding capacity /HTN, start on coreg /Hypoglycemia, resolved, likely due to NPO status, s/p D50 and D5 Ns / DVT prophylaxis, On Lovenox Disposition: I wanted to get patient into inpatient rehab but Dr. Perera from his insurance called me and denied placement to inpatient rehab, we got into a heated argument and Dr. Perera hung up in my face. Patient is demanding to go home and not to a facility. I Notified Dr. Dobson and he is okay with patient going home, he agreed to document this. No need for abx, the right foot has been amputated Disposition: [id number] HOME [facility] Time spent for discharge: 35 minutes Core Measure Documentation - Palliative Care Palliative Care/ Comfort Measures: Not Applicable - Core Measures Any of the following diagnoses?: none - VTE Discharge Requirements Deep Vein Thrombosis/Pulmonary Embolism Present on Admission: No Has pt received <5 days of overlap therapy or INR<2.0: No Anticoagulant overlap therapy prescribed at discharge: No Contraindication No Overlap Therapy order at DC: Not Indicated Exam - Physical Exam Narrative exam: Gen: WDWN, NAD, Awake, Alert, Orientated HEENT: NCAT, EOMI, PERRL, OP Clear Neck: supple, no adenopathy, no thyromegaly, no JVD CVS/Heart: RRR, normal S1S2, pulses present bilaterally Chest/Lungs: CTA B, Symmetrical chest expansion, good air entry bilaterally GI/Abdomen: soft, NTND, good bowel sounds, no guarding or rebound /Bladder: no suprapubic tenderness, no CVA or paraspinal tenderness Extermity/Skin: right bka c/d/i, and on Surgical exam: Sacrum: 13 X 13 X 1 cm, Left hip: 19 X 7 X 0.6 cm Peripheral Pulses: within normal limits MSK: FROM x 4 Neuro: CN 2-12 grossly intact, no new focal deficits Psych: anxious tearful, sad about his health, denies SI/HI - Constitutional Vitals: Temp Pulse Resp BP Pulse Ox 98.4 F 74 20 147/71 96 07/10/18 11:08 07/10/18 11:08 07/10/18 11:08 07/10/18 11:08 07/10/18 11:08 Plan Activity: up only with assistance, fall precautions Diet: advance as tolerated (GI soft and advance as tolerated but Diabetic diet) Wound: per your surgeon's advice, per wound nurse instructions Special Instructions: record daily BP diary, record blood sugar diary Follow up with: [place] RONI [Primary Care Provider] - 3-5 Days LILY DOBSON MD [Staff Physician] - 7 Days Prescriptions: Metoclopramide [Reglan ORAL LIQ] 10 mg PO TIDAC #30 oral.liqd RX: oxyCODONE /ACETAMINOPHEN [Percocet 5/325 mg] 1 tab PO Q4H PRN #15 tablet PRN Reason: Pain, Moderate (4-6)
[2018-07-10] MEDS ORDERED: FLEET PR ONE ×2 (15:11→19:00)
[2018-07-10] MEDS: LOVENOX SUB-Q SCH (21:23)
[2018-07-10] MEDS: LANTUS SUB-Q SCH (22:00)
[2018-07-11] MEDS: HumaLOG SUB-Q SCH ×3 (09:10→18:53)
[2018-07-11] MEDS: PROTONIX PO SCH (11:43)
[2018-07-11] MEDS: MUCINEX ER PO SCH (11:43)
[2018-07-11] MEDS: PLAVIX PO SCH (11:43)
[2018-07-11] MEDS: DAKIN'S HALF STRENGTH TP SCH (11:45)
[2018-07-11] MEDS: COREG PO SCH (12:10)
--- NOTE | 2018-07-11 17:53 | Event Note ---
Date: 07/11/18 Pt can be discharged with outpt rehab. He should be discharged with crutches. He can f/u in my office in 7-10 days.
[2018-07-11 19:06] VITALS: BP 166/90
--- NOTE | 2018-07-20 05:50 | Vascular Lab Report ---
PROCEDURE: VL DEEAPK EVALUATION TECHNIQUE: Blood pressure measurement at the arm and ankles were performed. HISTORY: left heel ulcer with osteomyelitis COMPARISONS: FINDINGS: Right ankle-brachial index is 0.96. Left ankle brachial index is 1.08. IMPRESSION: No evidence of arterial insufficiency bilaterally. This document is electronically signed by Juan Seth MD., July 20 2018 05:47:48 AM ET
== END 2018-07-11 19:40 | disposition home health service (06) | DRG 853 ==
LOC: ED 09:18 → 3A 12:23
PROVIDERS: ADMIT Internal Medicine; ATTEND Internal Medicine
PROC: 0JBQ0ZZ Excision of Right Foot Subcutaneous Tissue and Fascia, Open Approach (ICD-10-PCS; principal; 2018-07-03)
PROC: 04CP3ZZ Extirpation of Matter from Right Anterior Tibial Artery, Percutaneous Approach (ICD-10-PCS; 2018-07-03)
PROC: 047P3ZZ Dilation of Right Anterior Tibial Artery, Percutaneous Approach (ICD-10-PCS; 2018-07-03)
PROC: B41D1ZZ Fluoroscopy of Aorta and Bilateral Lower Extremity Arteries using Low Osmolar Contrast (ICD-10-PCS; 2018-07-03)
PROC: 0Y6H0Z1 Detachment at Right Lower Leg, High, Open Approach (ICD-10-PCS; 2018-07-04)
DX: A41.9 Sepsis, unspecified organism (principal); L89.154 Pressure ulcer of sacral region, stage 4; L89.223 Pressure ulcer of left hip, stage 3; E43 Unspecified severe protein-calorie malnutrition; L03.115 Cellulitis of right lower limb; E11.621 Type 2 diabetes mellitus with foot ulcer; M65.071 Abscess of tendon sheath, right ankle and foot; E11.649 Type 2 diabetes mellitus with hypoglycemia without coma; E11.40 Type 2 diabetes mellitus with diabetic neuropathy, unspecified; L97.519 Non-pressure chronic ulcer of other part of right foot with unspecified severity; I10 Essential (primary) hypertension; D63.8 Anemia in other chronic diseases classified elsewhere; Z79.899 Other long term (current) drug therapy; Z90.49 Acquired absence of other specified parts of digestive tract; Z98.49 Cataract extraction status, unspecified eye
CPT/HCPCS: 36415; 37229; 74176; 75625; 75710; 76937; 80048; 80076; 80202; 81001; 82607; 82747; 82962; 83036; 83550; 83690; 85007; 85014; 85018; 85025; 85027; 87040; 87076; 87116; 87186; 88307; 88311; 93922; 93925; G0378; A6260; C1724; C1725; C1760; C1769; C1887; J0295; J0330; J0690; J1170; J1644; J1650; J1815; J2250; J2270; J2405; J2543; J2704; J2765; J3010; J3370; J3480; J7030; J7040; J7042; J7120; Q9967